=== PATIENT | female | born 1995 | race Caucasian/White ===

== ENCOUNTER 2018-03-03 22:57 | Inpatient (IN) | payer SELFPAY ==
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
[2018-03-03 23:07] VITALS: BMI 27.1
[2018-03-03] MEDS ORDERED: Sodium Chloride 0.9% 1,000 ML IV STA (23:08)
[2018-03-03] MEDS ORDERED: DEXTROSE 5% IVPB ONE ×2 (23:09→23:52)
[2018-03-03] MEDS ORDERED: WATER IVPB ONE ×2 (23:09→23:52)
[2018-03-03] MEDS ORDERED: ACETYLCYSTEINE IVPB ONE ×2 (23:09→23:52)
[2018-03-03 23:33] LABS: BASO # 0.07 K/mm3 (0.0-2.0); BASO % 0.4 % (0.0-3.0); EOS # 0.4 (0.0-0.7); EOS % 2.2 % (1.5-5.0); GRAN # 7.75 (1.4-6.5); GRAN % 45.1 % (50.0-68.0); HEMOGLOBIN 13.1 g/dL (12.0-16.0); LYMPH # 8.1 (1.2-3.4); LYMPH % 47.3 % (22.0-35.0); MEAN CELL VOLUME 82.1 fl (80.0-105.0); MEAN CORPUSCULAR HEMOGLOBIN 26.7 pg (25.0-35.0); MEAN CORPUSCULAR HGB CONC 32.5 g/dl (31.0-37.0); MEAN PLATELET VOLUME 9.6 fl (7.0-11.0); MONO # 0.9 (0.1-0.6); RBC 4.91 10^6/uL (3.5-6.1); RED CELL DISTRIBUTION WIDTH 15.1 % (11.5-14.5); WHITE BLOOD COUNT 17.1 10^3/uL (4.5-11.0)
[2018-03-03 23:38] LABS: BLOOD UREA NITROGEN 10 mg/dL (7-21); CALCIUM 9.6 mg/dL (8.4-10.5); GFR NON-AFRICAN AMERICAN > 60
[2018-03-03 23:45] LABS: ALB/GLOB RATIO 1.3 (1.1-1.8); ALBUMIN 4.7 g/dL (3.0-4.8); ALT/SGPT 48 U/L (7-56); AST/SGOT 44 U/L (14-36)
[2018-03-03 23:45] LABS: ARTERIAL BLOOD GAS HCO3 19.7 mmol/L (21-28); ARTERIAL BLOOD GAS O2 SAT 96.1 % (95-98); ARTERIAL BLOOD GAS PCO2 34 mm/Hg (35-45); ARTERIAL BLOOD GAS PH 7.37 (7.35-7.45); ARTERIAL BLOOD GAS TCO2 20.7 mmol.L (22-28)
[2018-03-04] MEDS ORDERED: Sodium Chloride 0.9% 1,000 ML IV SCH ×3 (00:30→01:41)
[2018-03-04 00:31] LABS: PH,URINE 6.5 (4.7-8.0); URINE BILIRUBIN NEGATIVE (NEGATIVE); URINE BLOOD NEGATIVE (NEGATIVE); URINE GLUCOSE (UA) NEGATIVE (NEGATIVE); URINE LEUKOCYTE ESTERASE SMALL Leu/uL (NEGATIVE); URINE PROTEIN NEGATIVE mg/dL (<30 mg/dL); URINE UROBILINOGEN 0.2 E.U./dL (<1 E.U./dL)
[2018-03-04 00:32] LABS: URINE APPEARANCE CLEAR (CLEAR); URINE COLOR YELLOW (YELLOW)
[2018-03-04 00:44] LABS: URINE BACTERIA FEW /hpf; URINE RBC 0 - 2 /hpf (0-2)
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
[2018-03-04 01:19] LABS: BARBITURATES, UR NEGATIVE (NEGATIVE); BENZODIAZEPINES, UR NEGATIVE (NEGATIVE); OPIATES, UR NEGATIVE (NEGATIVE); PHENCYCLIDINE, UR NEGATIVE (NEGATIVE)
[2018-03-04] MEDS: Sodium Chloride 0.9% 1,000 ML IV SCH ×3 (02:40→21:59)
[2018-03-04] MEDS ORDERED: ACETYLCYSTEINE IVPB ONE (04:00)
[2018-03-04] MEDS ORDERED: DEXTROSE 5% IVPB ONE (04:00)
[2018-03-04] MEDS ORDERED: WATER IVPB ONE (04:00)
[2018-03-04 04:24] LABS: INR 0.98; PARTIAL THROMBOPLASTIN TIME 28.1 Seconds (25.1-36.5); PROTHROMBIN TIME 11.3 SECONDS (9.4-12.5)
[2018-03-04 04:38] LABS: ALB/GLOB RATIO 1.3 (1.1-1.8); ALBUMIN 4.1 g/dL (3.0-4.8); ALT/SGPT 44 U/L (7-56); AST/SGOT 26 U/L (14-36); BLOOD UREA NITROGEN 7 mg/dL (7-21); CALCIUM 8.3 mg/dL (8.4-10.5); GFR NON-AFRICAN AMERICAN > 60; VENOUS BLOOD GAS BASE EXCESS -5.6 mmol/L (0.0-2.0); VENOUS BLOOD GAS PO2 50 mm/Hg (30-55); VENOUS BLOOD PH 7.35 (7.32-7.43)
[2018-03-04] MEDS ORDERED: Potassium Chloride 20 mEq ER Tab PO ONE ×2 (07:41→21:51)
--- NOTE | 2018-03-04 07:44 | CP.CCUPN ---
<HarshadJosé Miguel - Last Filed: 03/04/18 13:43> CCU Subjective - Physician Review Subjective (Free Text): 03/04/18 09:31 Freddy Patricia PGY2 - ICU Progress Note Patient seen and examined this AM. Patient is alert and oriented, cooperative with exam. She indicates she ingested at last 1/2 to 2/3 of Acetaminophen extra strength from a Tylenol bottle originally containing 225 tabs. She indicates her ingestion time was around 9-10pm last evening. She denies nausea, vomiting, abdominal pain, confusion, hallucinations, sweating, chills, shakes. CCU Objective - Vital Signs / Intake & Output Vital Signs (Last 4 hours): Vital Signs Temp Pulse Pulse Resp 03/04/18 04:20 80 03/04/18 03:51 97.9 F 84 18 Intake and Output (Last 8hrs): Intake & Output 03/03/18 03/04/18 03/04/18 22:59 06:59 14:59 Intake Total 1000 Output Total 500 Balance 500 Weight 163 lb Intake: IV 1000 Left Antecubital 1000 Output: Urine 500 Urine, Voided 500 Other: Voiding Method Bedpan # Bowel Movements 1 - Physical Exam Head: Positive for: Atraumatic, Normocephalic Pupils: Positive for: PERRL Extroacular Muscles: Positive for: EOMI Conjunctiva: Positive for: Normal Mouth: Positive for: Moist Mucous Membranes Neck: Positive for: Normal Range of Motion Respiratory/Chest: Positive for: Clear to Auscultation, Good Air Exchange. N egative for: Respiratory Distress, Accessory Muscle Use Cardiovascular: Positive for: Regular Rate and Rhythm, Normal S1, S2. Negative for: Murmurs Abdomen: Negative for: Tenderness, Distention, Peritoneal Signs Back: Positive for: Normal Inspection Upper Extremity: Positive for: Normal Inspection. Negative for: Cyanosis, Edema Lower Extremity: Positive for: Normal Inspection. Negative for: Edema Neurological: Positive for: GCS=15, CN II-XII Intact, Speech Normal, Motor Func Grossly Intact, Memory Normal Skin: Positive for: Warm, Dry, Normal Color. Negative for: Rashes Psychiatric: Positive for: Alert, Oriented x 3, Normal Insight, Normal Concentration - Medications Active Medications: Active Medications Generic Name Dose Route Start Last Admin Trade Name Freq PRN Reason Stop Dose Admin Acetylcysteine 7,420 mg/ 1,037.1 mls @ 62.5 mls/hr 03/04/18 04:00 03/04/18 05:05 Dextrose IVPB 03/04/18 20:35 62.5 mls/hr ONCE ONE Administration Sodium Chloride 1,000 mls @ 125 mls/hr 03/04/18 02:07 03/04/18 02:40 Sodium Chloride 0.9% IV 125 mls/hr .Q8H MAE Administration Ondansetron HCl 4 mg 03/04/18 02:05 Zofran Inj IVP Q6H PRN Nausea/Vomiting Pantoprazole Sodium 40 mg 03/04/18 02:07 03/04/18 03:56 Protonix Inj IVP 40 mg DAILY MAE Administration Potassium Chloride 20 meq 03/04/18 07:41 K-Dur 20 Meq Er Tab PO 03/04/18 07:42 ONCE ONE - Patient Studies Lab Studies: Lab Studies 03/04/18 03/04/18 03/04/18 Range/Units 04:08 04:08 04:08 WBC (4.5-11.0) 10^3/uL RBC (3.5-6.1) 10^6/uL Hgb (12.0-16.0) g/dL Hct (36.0-48.0) % MCV (80.0-105.0) fl MCH (25.0-35.0) pg MCHC (31.0-37.0) g/dl RDW (11.5-14.5) % Plt Count (120.0-450.0) 10^3/uL MPV (7.0-11.0) fl Gran % (50.0-68.0) % Lymph % (Auto) (22.0-35.0) % [place] % (Auto) (1.0-6.0) % Eos % (Auto) (1.5-5.0) % Baso % (Auto) (0.0-3.0) % Gran # (1.4-6.5) Lymph # (Auto) (1.2-3.4) [place] # (Auto) (0.1-0.6) Eos # (Auto) (0.0-0.7) Baso # (Auto) (0.0-2.0) K/mm3 PT 11.3 (9.4-12.5) SECONDS INR 0.98 APTT 28.1 (25.1-36.5) Seconds pCO2 (35-45) mm/Hg pO2 50 (80-100) mm/Hg HCO3 (21-28) mmol/L ABG pH (7.35-7.45) ABG Total CO2 (22-28) mmol.L ABG O2 Saturation (95-98) % ABG Base Excess (-2.0-3.0) mmol/L ABG Potassium (3.6-5.2) mmol/L VBG pH 7.35 (7.32-7.43) VBG pCO2 35.0 L (40-60) VBG HCO3 19.3 L (21-28) mmol/l VBG Total CO2 20.4 L (22-28) mmol.L VBG O2 Sat (Calc) 89.4 H (40-65) % VBG Base Excess -5.6 L (0.0-2.0) mmol/L VBG Potassium 3.4 L (3.6-5.2) mmol/L Glucose 209 H (65-105) mg/dl Lactate 2.1 (0.7-2.1) mmol/L FiO2 21.0 % Sodium 142.0 140 (132-148) mmol/L Potassium 3.5 L (3.6-5.0) mmol/L Chloride 101.0 108 H (98-107) mmol/L Carbon Dioxide 20 L (21-33) mmol/L Anion Gap 15 (10-20) BUN 7 (7-21) mg/dL Creatinine 0.5 L (0.7-1.2) mg/dl Est GFR ( Amer) > 60 Est GFR (Non-Af Amer) > 60 Random Glucose 192 H (70-110) mg/dL Calcium 8.3 L (8.4-10.5) mg/dL Magnesium (1.7-2.2) mg/dL Total Bilirubin 0.2 (0.2-1.3) mg/dL AST 26 (14-36) U/L ALT 44 (7-56) U/L Alkaline Phosphatase 27 L D (38-126) U/L Ammonia (9-33) umol/L Total Protein 7.3 (5.8-8.3) g/dL Albumin 4.1 (3.0-4.8) g/dL Globulin 3.2 gm/dL Albumin/Globulin Ratio 1.3 (1.1-1.8) Beta HCG, Quant (0-6.15) mIU/mL Arterial Blood Potassium (3.6-5.2) mmol/L Venous Blood Potassium 3.4 L (3.6-5.2) mmol/L Urine Color (YELLOW) Urine Appearance (CLEAR) Urine pH (4.7-8.0) Ur Specific [place] (1.005-1.035) Urine Protein (<30 mg/dL) mg/dL Urine Glucose (UA) (NEGATIVE) mg/dL Urine Ketones (NEGATIVE) mg/dL Urine Blood (NEGATIVE) Urine Nitrate (NEGATIVE) Urine Bilirubin (NEGATIVE) Urine Urobilinogen (<1 E.U./dL) E.U./dL Ur Leukocyte Esterase (NEGATIVE) [place]/uL Urine RBC (0-2) /hpf Urine WBC (0-6) /hpf Ur Epithelial Cells (0-5) /hpf Urine Bacteria (NONE) /hpf Salicylates (2.0-20.0) mg/dL Urine Opiates Screen (NEGATIVE) Urine Methadone Screen (NEGATIVE) Acetaminophen (10.0-20.0) ug/ml Ur Barbiturates Screen (NEGATIVE) Ur Phencyclidine Scrn (NEGATIVE) Ur Amphetamines Screen (NEGATIVE) U Benzodiazepines Scrn (NEGATIVE) U Oth Cocaine Metabols (NEGATIVE) U Cannabinoids Screen (NEGATIVE) Alcohol, Quantitative (0-10) mg/dL 03/04/18 03/04/18 03/04/18 Range/Units 01:32 01:32 00:04 WBC (4.5-11.0) 10^3/uL RBC (3.5-6.1) 10^6/uL Hgb (12.0-16.0) g/dL Hct (36.0-48.0) % MCV (80.0-105.0) fl MCH (25.0-35.0) pg MCHC (31.0-37.0) g/dl RDW (11.5-14.5) % Plt Count (120.0-450.0) 10^3/uL MPV (7.0-11.0) fl Gran % (50.0-68.0) % Lymph % (Auto) (22.0-35.0) % [place] % (Auto) (1.0-6.0) % Eos % (Auto) (1.5-5.0) % Baso % (Auto) (0.0-3.0) % Gran # (1.4-6.5) Lymph # (Auto) (1.2-3.4) [place] # (Auto) (0.1-0.6) Eos # (Auto) (0.0-0.7) Baso # (Auto) (0.0-2.0) K/mm3 PT (9.4-12.5) SECONDS INR APTT (25.1-36.5) Seconds pCO2 (35-45) mm/Hg pO2 (80-100) mm/Hg HCO3 (21-28) mmol/L ABG pH (7.35-7.45) ABG Total CO2 (22-28) mmol.L ABG O2 Saturation (95-98) % ABG Base Excess (-2.0-3.0) mmol/L ABG Potassium (3.6-5.2) mmol/L VBG pH (7.32-7.43) VBG pCO2 (40-60) VBG HCO3 (21-28) mmol/l VBG Total CO2 (22-28) mmol.L VBG O2 Sat (Calc) (40-65) % VBG Base Excess (0.0-2.0) mmol/L VBG Potassium (3.6-5.2) mmol/L Glucose (65-105) mg/dl Lactate (0.7-2.1) mmol/L FiO2 % Sodium (132-148) mmol/L Potassium (3.6-5.0) mmol/L Chloride (98-107) mmol/L Carbon Dioxide (21-33) mmol/L Anion Gap (10-20) BUN (7-21) mg/dL Creatinine (0.7-1.2) mg/dl Est GFR ( Amer) Est GFR (Non-Af Amer) Random Glucose (70-110) mg/dL Calcium (8.4-10.5) mg/dL Magnesium (1.7-2.2) mg/dL Total Bilirubin (0.2-1.3) mg/dL AST (14-36) U/L ALT (7-56) U/L Alkaline Phosphatase (38-126) U/L Ammonia < 9 L (9-33) umol/L Total Protein (5.8-8.3) g/dL Albumin (3.0-4.8) g/dL Globulin gm/dL Albumin/Globulin Ratio (1.1-1.8) Beta HCG, Quant (0-6.15) mIU/mL Arterial Blood Potassium (3.6-5.2) mmol/L Venous Blood Potassium (3.6-5.2) mmol/L Urine Color (YELLOW) Urine Appearance (CLEAR) Urine pH (4.7-8.0) Ur Specific [place] (1.005-1.035) Urine Protein (<30 mg/dL) mg/dL Urine Glucose (UA) (NEGATIVE) mg/dL Urine Ketones (NEGATIVE) mg/dL Urine Blood (NEGATIVE) Urine Nitrate (NEGATIVE) Urine Bilirubin (NEGATIVE) Urine Urobilinogen (<1 E.U./dL) E.U./dL Ur Leukocyte Esterase (NEGATIVE) [place]/uL Urine RBC (0-2) /hpf Urine WBC (0-6) /hpf Ur Epithelial Cells (0-5) /hpf Urine Bacteria (NONE) /hpf Salicylates (2.0-20.0) mg/dL Urine Opiates Screen Negative (NEGATIVE) Urine Methadone Screen Negative (NEGATIVE) Acetaminophen 178.0 H* (10.0-20.0) ug/ml Ur Barbiturates Screen Negative (NEGATIVE) Ur Phencyclidine Scrn Negative (NEGATIVE) Ur Amphetamines Screen Negative (NEGATIVE) U Benzodiazepines Scrn Negative (NEGATIVE) U Oth Cocaine Metabols Negative (NEGATIVE) U Cannabinoids Screen Positive H (NEGATIVE) Alcohol, Quantitative (0-10) mg/dL 03/04/18 03/03/18 03/03/18 Range/Units 00:04 23:38 23:05 WBC (4.5-11.0) 10^3/uL RBC (3.5-6.1) 10^6/uL Hgb (12.0-16.0) g/dL Hct (36.0-48.0) % MCV (80.0-105.0) fl MCH (25.0-35.0) pg MCHC (31.0-37.0) g/dl RDW (11.5-14.5) % Plt Count (120.0-450.0) 10^3/uL MPV (7.0-11.0) fl Gran % (50.0-68.0) % Lymph % (Auto) (22.0-35.0) % [place] % (Auto) (1.0-6.0) % Eos % (Auto) (1.5-5.0) % Baso % (Auto) (0.0-3.0) % Gran # (1.4-6.5) Lymph # (Auto) (1.2-3.4) [place] # (Auto) (0.1-0.6) Eos # (Auto) (0.0-0.7) Baso # (Auto) (0.0-2.0) K/mm3 PT (9.4-12.5) SECONDS INR APTT (25.1-36.5) Seconds pCO2 34 L (35-45) mm/Hg pO2 69.0 L (80-100) mm/Hg HCO3 19.7 L (21-28) mmol/L ABG pH 7.37 (7.35-7.45) ABG Total CO2 20.7 L (22-28) mmol.L ABG O2 Saturation 96.1 (95-98) % ABG Base Excess -4.8 L (-2.0-3.0) mmol/L ABG Potassium 3.0 L (3.6-5.2) mmol/L VBG pH (7.32-7.43) VBG pCO2 (40-60) VBG HCO3 (21-28) mmol/l VBG Total CO2 (22-28) mmol.L VBG O2 Sat (Calc) (40-65) % VBG Base Excess (0.0-2.0) mmol/L VBG Potassium (3.6-5.2) mmol/L Glucose 133 H (65-105) mg/dl Lactate 2.1 (0.7-2.1) mmol/L FiO2 21.0 % Sodium 142.0 (132-148) mmol/L Potassium (3.6-5.0) mmol/L Chloride 111.0 H (98-107) mmol/L Carbon Dioxide (21-33) mmol/L Anion Gap (10-20) BUN (7-21) mg/dL Creatinine (0.7-1.2) mg/dl Est GFR ( Amer) Est GFR (Non-Af Amer) Random Glucose (70-110) mg/dL Calcium (8.4-10.5) mg/dL Magnesium (1.7-2.2) mg/dL Total Bilirubin (0.2-1.3) mg/dL AST (14-36) U/L ALT (7-56) U/L Alkaline Phosphatase (38-126) U/L Ammonia (9-33) umol/L Total Protein (5.8-8.3) g/dL Albumin (3.0-4.8) g/dL Globulin gm/dL Albumin/Globulin Ratio (1.1-1.8) Beta HCG, Quant < 2.39 (0-6.15) mIU/mL Arterial Blood Potassium 3.0 L (3.6-5.2) mmol/L Venous Blood Potassium (3.6-5.2) mmol/L Urine Color Yellow (YELLOW) Urine Appearance Clear (CLEAR) Urine pH 6.5 (4.7-8.0) Ur Specific [place] 1.020 (1.005-1.035) Urine Protein Negative (<30 mg/dL) mg/dL Urine Glucose (UA) Negative (NEGATIVE) mg/dL Urine Ketones Negative (NEGATIVE) mg/dL Urine Blood Negative (NEGATIVE) Urine Nitrate Negative (NEGATIVE) Urine Bilirubin Negative (NEGATIVE) Urine Urobilinogen 0.2 (<1 E.U./dL) E.U./dL Ur Leukocyte Esterase Small H (NEGATIVE) [place]/uL Urine RBC 0 - 2 (0-2) /hpf Urine WBC 1 - 3 (0-6) /hpf Ur Epithelial Cells 1 - 3 (0-5) /hpf Urine Bacteria Few (NONE) /hpf Salicylates (2.0-20.0) mg/dL Urine Opiates Screen (NEGATIVE) Urine Methadone Screen (NEGATIVE) Acetaminophen (10.0-20.0) ug/ml Ur Barbiturates Screen (NEGATIVE) Ur Phencyclidine Scrn (NEGATIVE) Ur Amphetamines Screen (NEGATIVE) U Benzodiazepines Scrn (NEGATIVE) U Oth Cocaine Metabols (NEGATIVE) U Cannabinoids Screen (NEGATIVE) Alcohol, Quantitative (0-10) mg/dL 03/03/18 03/03/18 03/03/18 Range/Units 23:05 23:05 23:05 WBC (4.5-11.0) 10^3/uL RBC (3.5-6.1) 10^6/uL Hgb (12.0-16.0) g/dL Hct (36.0-48.0) % MCV (80.0-105.0) fl MCH (25.0-35.0) pg MCHC (31.0-37.0) g/dl RDW (11.5-14.5) % Plt Count (120.0-450.0) 10^3/uL MPV (7.0-11.0) fl Gran % (50.0-68.0) % Lymph % (Auto) (22.0-35.0) % [place] % (Auto) (1.0-6.0) % Eos % (Auto) (1.5-5.0) % Baso % (Auto) (0.0-3.0) % Gran # (1.4-6.5) Lymph # (Auto) (1.2-3.4) [place] # (Auto) (0.1-0.6) Eos # (Auto) (0.0-0.7) Baso # (Auto) (0.0-2.0) K/mm3 PT (9.4-12.5) SECONDS INR APTT (25.1-36.5) Seconds pCO2 (35-45) mm/Hg pO2 (80-100) mm/Hg HCO3 (21-28) mmol/L ABG pH (7.35-7.45) ABG Total CO2 (22-28) mmol.L ABG O2 Saturation (95-98) % ABG Base Excess (-2.0-3.0) mmol/L ABG Potassium (3.6-5.2) mmol/L VBG pH (7.32-7.43) VBG pCO2 (40-60) VBG HCO3 (21-28) mmol/l VBG Total CO2 (22-28) mmol.L VBG O2 Sat (Calc) (40-65) % VBG Base Excess (0.0-2.0) mmol/L VBG Potassium (3.6-5.2) mmol/L Glucose (65-105) mg/dl Lactate (0.7-2.1) mmol/L FiO2 % Sodium 143 (132-148) mmol/L Potassium 3.6 (3.6-5.0) mmol/L Chloride 106 (98-107) mmol/L Carbon Dioxide 23 (21-33) mmol/L Anion Gap 17 (10-20) BUN 10 (7-21) mg/dL Creatinine 0.8 (0.7-1.2) mg/dl Est GFR ( Amer) > 60 Est GFR (Non-Af Amer) > 60 Random Glucose 122 H (70-110) mg/dL Calcium 9.6 (8.4-10.5) mg/dL Magnesium 1.9 (1.7-2.2) mg/dL Total Bilirubin 0.4 (0.2-1.3) mg/dL AST 44 H (14-36) U/L ALT 48 (7-56) U/L Alkaline Phosphatase 66 (38-126) U/L Ammonia (9-33) umol/L Total Protein 8.4 H (5.8-8.3) g/dL Albumin 4.7 (3.0-4.8) g/dL Globulin 3.7 gm/dL Albumin/Globulin Ratio 1.3 (1.1-1.8) Beta HCG, Quant (0-6.15) mIU/mL Arterial Blood Potassium (3.6-5.2) mmol/L Venous Blood Potassium (3.6-5.2) mmol/L Urine Color (YELLOW) Urine Appearance (CLEAR) Urine pH (4.7-8.0) Ur Specific [place] (1.005-1.035) Urine Protein (<30 mg/dL) mg/dL Urine Glucose (UA) (NEGATIVE) mg/dL Urine Ketones (NEGATIVE) mg/dL Urine Blood (NEGATIVE) Urine Nitrate (NEGATIVE) Urine Bilirubin (NEGATIVE) Urine Urobilinogen (<1 E.U./dL) E.U./dL Ur Leukocyte Esterase (NEGATIVE) [place]/uL Urine RBC (0-2) /hpf Urine WBC (0-6) /hpf Ur Epithelial Cells (0-5) /hpf Urine Bacteria (NONE) /hpf Salicylates 1 L (2.0-20.0) mg/dL Urine Opiates Screen (NEGATIVE) Urine Methadone Screen (NEGATIVE) Acetaminophen 167.0 H* (10.0-20.0) ug/ml Ur Barbiturates Screen (NEGATIVE) Ur Phencyclidine Scrn (NEGATIVE) Ur Amphetamines Screen (NEGATIVE) U Benzodiazepines Scrn (NEGATIVE) U Oth Cocaine Metabols (NEGATIVE) U Cannabinoids Screen (NEGATIVE) Alcohol, Quantitative < 10 (0-10) mg/dL 03/03/18 Range/Units 23:05 WBC 17.1 H (4.5-11.0) 10^3/uL RBC 4.91 (3.5-6.1) 10^6/uL Hgb 13.1 (12.0-16.0) g/dL Hct 40.3 (36.0-48.0) % MCV 82.1 (80.0-105.0) fl MCH 26.7 (25.0-35.0) pg MCHC 32.5 (31.0-37.0) g/dl RDW 15.1 H (11.5-14.5) % Plt Count 404 (120.0-450.0) 10^3/uL MPV 9.6 (7.0-11.0) fl Gran % 45.1 L (50.0-68.0) % Lymph % (Auto) 47.3 H (22.0-35.0) % [place] % (Auto) 5.0 (1.0-6.0) % Eos % (Auto) 2.2 (1.5-5.0) % Baso % (Auto) 0.4 (0.0-3.0) % Gran # 7.75 H (1.4-6.5) Lymph # (Auto) 8.1 H (1.2-3.4) [place] # (Auto) 0.9 H (0.1-0.6) Eos # (Auto) 0.4 (0.0-0.7) Baso # (Auto) 0.07 (0.0-2.0) K/mm3 PT (9.4-12.5) SECONDS INR APTT (25.1-36.5) Seconds pCO2 (35-45) mm/Hg pO2 (80-100) mm/Hg HCO3 (21-28) mmol/L ABG pH (7.35-7.45) ABG Total CO2 (22-28) mmol.L ABG O2 Saturation (95-98) % ABG Base Excess (-2.0-3.0) mmol/L ABG Potassium (3.6-5.2) mmol/L VBG pH (7.32-7.43) VBG pCO2 (40-60) VBG HCO3 (21-28) mmol/l VBG Total CO2 (22-28) mmol.L VBG O2 Sat (Calc) (40-65) % VBG Base Excess (0.0-2.0) mmol/L VBG Potassium (3.6-5.2) mmol/L Glucose (65-105) mg/dl Lactate (0.7-2.1) mmol/L FiO2 % Sodium (132-148) mmol/L Potassium (3.6-5.0) mmol/L Chloride (98-107) mmol/L Carbon Dioxide (21-33) mmol/L Anion Gap (10-20) BUN (7-21) mg/dL Creatinine (0.7-1.2) mg/dl Est GFR ( Amer) Est GFR (Non-Af Amer) Random Glucose (70-110) mg/dL Calcium (8.4-10.5) mg/dL Magnesium (1.7-2.2) mg/dL Total Bilirubin (0.2-1.3) mg/dL AST (14-36) U/L ALT (7-56) U/L Alkaline Phosphatase (38-126) U/L Ammonia (9-33) umol/L Total Protein (5.8-8.3) g/dL Albumin (3.0-4.8) g/dL Globulin gm/dL Albumin/Globulin Ratio (1.1-1.8) Beta HCG, Quant (0-6.15) mIU/mL Arterial Blood Potassium (3.6-5.2) mmol/L Venous Blood Potassium (3.6-5.2) mmol/L Urine Color (YELLOW) Urine Appearance (CLEAR) Urine pH (4.7-8.0) Ur Specific [place] (1.005-1.035) Urine Protein (<30 mg/dL) mg/dL Urine Glucose (UA) (NEGATIVE) mg/dL Urine Ketones (NEGATIVE) mg/dL Urine Blood (NEGATIVE) Urine Nitrate (NEGATIVE) Urine Bilirubin (NEGATIVE) Urine Urobilinogen (<1 E.U./dL) E.U./dL Ur Leukocyte Esterase (NEGATIVE) [place]/uL Urine RBC (0-2) /hpf Urine WBC (0-6) /hpf Ur Epithelial Cells (0-5) /hpf Urine Bacteria (NONE) /hpf Salicylates (2.0-20.0) mg/dL Urine Opiates Screen (NEGATIVE) Urine Methadone Screen (NEGATIVE) Acetaminophen (10.0-20.0) ug/ml Ur Barbiturates Screen (NEGATIVE) Ur Phencyclidine Scrn (NEGATIVE) Ur Amphetamines Screen (NEGATIVE) U Benzodiazepines Scrn (NEGATIVE) U Oth Cocaine Metabols (NEGATIVE) U Cannabinoids Screen (NEGATIVE) Alcohol, Quantitative (0-10) mg/dL Laboratory Results - last 24 hr 03/03/18 03/03/18 03/03/18 23:05 23:05 23:05 WBC 17.1 H RBC 4.91 Hgb 13.1 Hct 40.3 MCV 82.1 MCH 26.7 MCHC 32.5 RDW 15.1 H Plt Count 404 MPV 9.6 Gran % 45.1 L Lymph % (Auto) 47.3 H [place] % (Auto) 5.0 Eos % (Auto) 2.2 Baso % (Auto) 0.4 Gran # 7.75 H Lymph # (Auto) 8.1 H [place] # (Auto) 0.9 H Eos # (Auto) 0.4 Baso # (Auto) 0.07 PT INR APTT pCO2 pO2 HCO3 ABG pH ABG Total CO2 ABG O2 Saturation ABG Base Excess ABG Potassium VBG pH VBG pCO2 VBG HCO3 VBG Total CO2 VBG O2 Sat (Calc) VBG Base Excess VBG Potassium Glucose Lactate FiO2 Sodium 143 Potassium 3.6 Chloride 106 Carbon Dioxide 23 Anion Gap 17 BUN 10 Creatinine 0.8 Est GFR ( Amer) > 60 Est GFR (Non-Af Amer) > 60 Random Glucose 122 H Calcium 9.6 Magnesium 1.9 Total Bilirubin 0.4 AST 44 H ALT 48 Alkaline Phosphatase 66 Ammonia Total Protein 8.4 H Albumin 4.7 Globulin 3.7 Albumin/Globulin Ratio 1.3 Beta HCG, Quant Arterial Blood Potassium Venous Blood Potassium Urine Color Urine Appearance Urine pH Ur Specific [place] Urine Protein Urine Glucose (UA) Urine Ketones Urine Blood Urine Nitrate Urine Bilirubin Urine Urobilinogen Ur Leukocyte Esterase Urine RBC Urine WBC Ur Epithelial Cells Urine Bacteria Salicylates 1 L Urine Opiates Screen Urine Methadone Screen Acetaminophen 167.0 H* Ur Barbiturates Screen Ur Phencyclidine Scrn Ur Amphetamines Screen U Benzodiazepines Scrn U Oth Cocaine Metabols U Cannabinoids Screen Alcohol, Quantitative 03/03/18 03/03/18 03/03/18 23:05 23:05 23:38 WBC RBC Hgb Hct MCV MCH MCHC RDW Plt Count MPV Gran % Lymph % (Auto) [place] % (Auto) Eos % (Auto) Baso % (Auto) Gran # Lymph # (Auto) [place] # (Auto) Eos # (Auto) Baso # (Auto) PT INR APTT pCO2 34 L pO2 69.0 L HCO3 19.7 L ABG pH 7.37 ABG Total CO2 20.7 L ABG O2 Saturation 96.1 ABG Base Excess -4.8 L ABG Potassium 3.0 L VBG pH VBG pCO2 VBG HCO3 VBG Total CO2 VBG O2 Sat (Calc) VBG Base Excess VBG Potassium Glucose 133 H Lactate 2.1 FiO2 21.0 Sodium 142.0 Potassium Chloride 111.0 H Carbon Dioxide Anion Gap BUN Creatinine Est GFR ( Amer) Est GFR (Non-Af Amer) Random Glucose Calcium Magnesium Total Bilirubin AST ALT Alkaline Phosphatase Ammonia Total Protein Albumin Globulin Albumin/Globulin Ratio Beta HCG, Quant < 2.39 Arterial Blood Potassium 3.0 L Venous Blood Potassium Urine Color Urine Appearance Urine pH Ur Specific [place] Urine Protein Urine Glucose (UA) Urine Ketones Urine Blood Urine Nitrate Urine Bilirubin Urine Urobilinogen Ur Leukocyte Esterase Urine RBC Urine WBC Ur Epithelial Cells Urine Bacteria Salicylates Urine Opiates Screen Urine Methadone Screen Acetaminophen Ur Barbiturates Screen Ur Phencyclidine Scrn Ur Amphetamines Screen U Benzodiazepines Scrn U Oth Cocaine Metabols U Cannabinoids Screen Alcohol, Quantitative < 10 03/04/18 03/04/18 03/04/18 00:04 00:04 01:32 WBC RBC Hgb Hct MCV MCH MCHC RDW Plt Count MPV Gran % Lymph % (Auto) [place] % (Auto) Eos % (Auto) Baso % (Auto) Gran # Lymph # (Auto) [place] # (Auto) Eos # (Auto) Baso # (Auto) PT INR APTT pCO2 pO2 HCO3 ABG pH ABG Total CO2 ABG O2 Saturation ABG Base Excess ABG Potassium VBG pH VBG pCO2 VBG HCO3 VBG Total CO2 VBG O2 Sat (Calc) VBG Base Excess VBG Potassium Glucose Lactate FiO2 Sodium Potassium Chloride Carbon Dioxide Anion Gap BUN Creatinine Est GFR ( Amer) Est GFR (Non-Af Amer) Random Glucose Calcium Magnesium Total Bilirubin AST ALT Alkaline Phosphatase Ammonia < 9 L Total Protein Albumin Globulin Albumin/Globulin Ratio Beta HCG, Quant Arterial Blood Potassium Venous Blood Potassium Urine Color Yellow Urine Appearance Clear Urine pH 6.5 Ur Specific [place] 1.020 Urine Protein Negative Urine Glucose (UA) Negative Urine Ketones Negative Urine Blood Negative Urine Nitrate Negative Urine Bilirubin Negative Urine Urobilinogen 0.2 Ur Leukocyte Esterase Small H Urine RBC 0 - 2 Urine WBC 1 - 3 Ur Epithelial Cells 1 - 3 Urine Bacteria Few Salicylates Urine Opiates Screen Negative Urine Methadone Screen Negative Acetaminophen Ur Barbiturates Screen Negative Ur Phencyclidine Scrn Negative Ur Amphetamines Screen Negative U Benzodiazepines Scrn Negative U Oth Cocaine Metabols Negative U Cannabinoids Screen Positive H Alcohol, Quantitative 03/04/18 03/04/18 03/04/18 01:32 04:08 04:08 WBC RBC Hgb Hct MCV MCH MCHC RDW Plt Count MPV Gran % Lymph % (Auto) [place] % (Auto) Eos % (Auto) Baso % (Auto) Gran # Lymph # (Auto) [place] # (Auto) Eos # (Auto) Baso # (Auto) PT 11.3 INR 0.98 APTT 28.1 pCO2 pO2 HCO3 ABG pH ABG Total CO2 ABG O2 Saturation ABG Base Excess ABG Potassium VBG pH VBG pCO2 VBG HCO3 VBG Total CO2 VBG O2 Sat (Calc) VBG Base Excess VBG Potassium Glucose Lactate FiO2 Sodium 140 Potassium 3.5 L Chloride 108 H Carbon Dioxide 20 L Anion Gap 15 BUN 7 Creatinine 0.5 L Est GFR ( Amer) > 60 Est GFR (Non-Af Amer) > 60 Random Glucose 192 H Calcium 8.3 L Magnesium Total Bilirubin 0.2 AST 26 ALT 44 Alkaline Phosphatase 27 L D Ammonia Total Protein 7.3 Albumin 4.1 Globulin 3.2 Albumin/Globulin Ratio 1.3 Beta HCG, Quant Arterial Blood Potassium Venous Blood Potassium Urine Color Urine Appearance Urine pH Ur Specific [place] Urine Protein Urine Glucose (UA) Urine Ketones Urine Blood Urine Nitrate Urine Bilirubin Urine Urobilinogen Ur Leukocyte Esterase Urine RBC Urine WBC Ur Epithelial Cells Urine Bacteria Salicylates Urine Opiates Screen Urine Methadone Screen Acetaminophen 178.0 H* Ur Barbiturates Screen Ur Phencyclidine Scrn Ur Amphetamines Screen U Benzodiazepines Scrn U Oth Cocaine Metabols U Cannabinoids Screen Alcohol, Quantitative 03/04/18 04:08 WBC RBC Hgb Hct MCV MCH MCHC RDW Plt Count MPV Gran % Lymph % (Auto) [place] % (Auto) Eos % (Auto) Baso % (Auto) Gran # Lymph # (Auto) [place] # (Auto) Eos # (Auto) Baso # (Auto) PT INR APTT pCO2 pO2 50 HCO3 ABG pH ABG Total CO2 ABG O2 Saturation ABG Base Excess ABG Potassium VBG pH 7.35 VBG pCO2 35.0 L VBG HCO3 19.3 L VBG Total CO2 20.4 L VBG O2 Sat (Calc) 89.4 H VBG Base Excess -5.6 L VBG Potassium 3.4 L Glucose 209 H Lactate 2.1 FiO2 21.0 Sodium 142.0 Potassium Chloride 101.0 Carbon Dioxide Anion Gap BUN Creatinine Est GFR ( Amer) Est GFR (Non-Af Amer) Random Glucose Calcium Magnesium Total Bilirubin AST ALT Alkaline Phosphatase Ammonia Total Protein Albumin Globulin Albumin/Globulin Ratio Beta HCG, Quant Arterial Blood Potassium Venous Blood Potassium 3.4 L Urine Color Urine Appearance Urine pH Ur Specific [place] Urine Protein Urine Glucose (UA) Urine Ketones Urine Blood Urine Nitrate Urine Bilirubin Urine Urobilinogen Ur Leukocyte Esterase Urine RBC Urine WBC Ur Epithelial Cells Urine Bacteria Salicylates Urine Opiates Screen Urine Methadone Screen Acetaminophen Ur Barbiturates Screen Ur Phencyclidine Scrn Ur Amphetamines Screen U Benzodiazepines Scrn U Oth Cocaine Metabols U Cannabinoids Screen Alcohol, Quantitative EKG/Cardiology Studies: Cardiology / EKG Studies 03/03/18 23:08 ELECTROCARDIOGRAM Stat Comment: Reason For Exam: overdose Review of Systems - Review of Systems All systems: reviewed and no additional remarkable complaints except (as mentioned in HPI) Assessment/Plan - Assessment and Plan (Free Text) Assessment: 22 year old female with no significant past medical history who presented to [facility] for melatonin ingestion and acetaminophen overdose 2/2 suicidal ideation. Patient was transferred to ICU for closer monitoring. Plan: Neuro: AAOx3 Monitor mentation Cardio: HDS, Normotensive Maintain MAP>65 Pulm: CTAB, maintain SaO2>92% Supportive O2 as needed GI: Acetaminophen overdose (Phase 1) -Hx indicates 100+ extra strength Tylenol pills ingested 9-10pm night of 03/03 -NAC protocol initiate - Loaded dose of 140mg/Kg given at - Initiation of 70 mg/kg [id number] started -Acetaminophen level Q4H, trending downwards -LFT wnl -INR 1.08 (wnl) -Ammonia wnl -Poison control contacted regarding acetaminophen and melatonin ingestion. Recommending continued supportive care and NAC protocol -IV protonix -Zofran 4mg [id number] -Aspiration precautions, NPO -GI consulted, no RUQ Renal: -Maintain euvolema, replete lytes as necessary -Slightly below K of 3.5mg, [id number] given Endo: UDS positive for THC ID: Leukocytoss of 17.1 -etiology possible reactionary vs. infectious vs. ingestion -UA showing small leuk est, negative nitrate, asymptomatic Psych: Suicidal ideation/attempt Depression -Patient denies thoughts of SI, [place] at time of interview -Psych consulted Dispo: Continue to monitor in ICU for the next 24 hours Patient case and plan discussed with attending <Ollie Nation - Last Filed: 03/04/18 14:45> CCU Objective - Vital Signs / Intake & Output Intake and Output (Last 8hrs): Intake & Output 03/03/18 03/04/18 03/04/18 22:59 06:59 14:59 Intake Total 1000 Output Total 500 Balance 500 Weight 73.936 kg Intake: IV 1000 Left Antecubital 1000 Output: Urine 500 Urine, Voided 500 Other: Voiding Method Bedpan # Bowel Movements 1 - Medications Active Medications: Active Medications Generic Name Dose Route Start Last Admin Trade Name Freq PRN Reason Stop Dose Admin Acetylcysteine 7,420 mg/ 1,037.1 mls @ 62.5 mls/hr 03/04/18 04:00 03/04/18 05:05 Dextrose IVPB 03/04/18 20:35 62.5 mls/hr ONCE ONE Administration Sodium Chloride 1,000 mls @ 125 mls/hr 03/04/18 02:07 03/04/18 08:41 Sodium Chloride 0.9% IV 125 mls/hr .Q8H MAE Administration Ondansetron HCl 4 mg 03/04/18 02:05 Zofran Inj IVP Q6H PRN Nausea/Vomiting Pantoprazole Sodium 40 mg 03/04/18 02:07 03/04/18 03:56 Protonix Inj IVP 40 mg DAILY MAE Administration - Patient Studies Lab Studies: Lab Studies 03/04/18 03/04/18 03/04/18 Range/Units 12:00 12:00 12:00 WBC (4.5-11.0) 10^3/uL RBC (3.5-6.1) 10^6/uL Hgb (12.0-16.0) g/dL Hct (36.0-48.0) % MCV (80.0-105.0) fl MCH (25.0-35.0) pg MCHC (31.0-37.0) g/dl RDW (11.5-14.5) % Plt Count (120.0-450.0) 10^3/uL MPV (7.0-11.0) fl Gran % (50.0-68.0) % Lymph % (Auto) (22.0-35.0) % [place] % (Auto) (1.0-6.0) % Eos % (Auto) (1.5-5.0) % Baso % (Auto) (0.0-3.0) % Gran # (1.4-6.5) Lymph # (Auto) (1.2-3.4) [place] # (Auto) (0.1-0.6) Eos # (Auto) (0.0-0.7) Baso # (Auto) (0.0-2.0) K/mm3 PT 12.9 H (9.4-12.5) SECONDS INR 1.12 APTT 29.0 (25.1-36.5) Seconds pCO2 (35-45) mm/Hg pO2 (80-100) mm/Hg HCO3 (21-28) mmol/L ABG pH (7.35-7.45) ABG Total CO2 (22-28) mmol.L ABG O2 Saturation (95-98) % ABG Base Excess (-2.0-3.0) mmol/L ABG Potassium (3.6-5.2) mmol/L VBG pH (7.32-7.43) VBG pCO2 (40-60) VBG HCO3 (21-28) mmol/l VBG Total CO2 (22-28) mmol.L VBG O2 Sat (Calc) (40-65) % VBG Base Excess (0.0-2.0) mmol/L VBG Potassium (3.6-5.2) mmol/L Glucose (65-105) mg/dl Lactate (0.7-2.1) mmol/L FiO2 % Sodium 139 (132-148) mmol/L Potassium 3.5 L (3.6-5.0) mmol/L Chloride 110 H (98-107) mmol/L Carbon Dioxide 22 (21-33) mmol/L Anion Gap 11 (10-20) BUN 4 L (7-21) mg/dL Creatinine 0.6 L (0.7-1.2) mg/dl Est GFR ( Amer) > 60 Est GFR (Non-Af Amer) > 60 Random Glucose 115 H (70-110) mg/dL Calcium 8.5 (8.4-10.5) mg/dL Phosphorus (2.5-4.5) mg/dL Magnesium (1.7-2.2) mg/dL Total Bilirubin 0.4 (0.2-1.3) mg/dL AST 22 (14-36) U/L ALT 40 (7-56) U/L Alkaline Phosphatase 43 (38-126) U/L Ammonia (9-33) umol/L Total Protein 6.9 (5.8-8.3) g/dL Albumin 3.7 (3.0-4.8) g/dL Globulin 3.1 gm/dL Albumin/Globulin Ratio 1.2 (1.1-1.8) Beta HCG, Quant (0-6.15) mIU/mL Arterial Blood Potassium (3.6-5.2) mmol/L Venous Blood Potassium (3.6-5.2) mmol/L Urine Color (YELLOW) Urine Appearance (CLEAR) Urine pH (4.7-8.0) Ur Specific [place] (1.005-1.035) Urine Protein (<30 mg/dL) mg/dL Urine Glucose (UA) (NEGATIVE) mg/dL Urine Ketones (NEGATIVE) mg/dL Urine Blood (NEGATIVE) Urine Nitrate (NEGATIVE) Urine Bilirubin (NEGATIVE) Urine Urobilinogen (<1 E.U./dL) E.U./dL Ur Leukocyte Esterase (NEGATIVE) [place]/uL Urine RBC (0-2) /hpf Urine WBC (0-6) /hpf Ur Epithelial Cells (0-5) /hpf Urine Bacteria (NONE) /hpf Salicylates (2.0-20.0) mg/dL Urine Opiates Screen (NEGATIVE) Urine Methadone Screen (NEGATIVE) Acetaminophen < 10.0 L (10.0-20.0) ug/ml Ur Barbiturates Screen (NEGATIVE) Ur Phencyclidine Scrn (NEGATIVE) Ur Amphetamines Screen (NEGATIVE) U Benzodiazepines Scrn (NEGATIVE) U Oth Cocaine Metabols (NEGATIVE) U Cannabinoids Screen (NEGATIVE) Alcohol, Quantitative (0-10) mg/dL 03/04/18 03/04/18 03/04/18 Range/Units 11:40 10:49 08:00 WBC 13.1 H D (4.5-11.0) 10^3/uL RBC 4.53 (3.5-6.1) 10^6/uL Hgb 11.6 L (12.0-16.0) g/dL Hct 37.3 (36.0-48.0) % MCV 82.3 (80.0-105.0) fl MCH 25.6 (25.0-35.0) pg MCHC 31.1 (31.0-37.0) g/dl RDW 15.2 H (11.5-14.5) % Plt Count 315 (120.0-450.0) 10^3/uL MPV 9.7 (7.0-11.0) fl Gran % 76.9 H (50.0-68.0) % Lymph % (Auto) 19.5 L (22.0-35.0) % [place] % (Auto) 3.1 (1.0-6.0) % Eos % (Auto) 0.2 L (1.5-5.0) % Baso % (Auto) 0.3 (0.0-3.0) % Gran # 10.04 H (1.4-6.5) Lymph # (Auto) 2.6 (1.2-3.4) [place] # (Auto) 0.4 (0.1-0.6) Eos # (Auto) 0.0 (0.0-0.7) Baso # (Auto) 0.04 (0.0-2.0) K/mm3 PT 12.4 (9.4-12.5) SECONDS INR 1.08 APTT (25.1-36.5) Seconds pCO2 (35-45) mm/Hg pO2 57 H (80-100) mm/Hg HCO3 (21-28) mmol/L ABG pH (7.35-7.45) ABG Total CO2 (22-28) mmol.L ABG O2 Saturation (95-98) % ABG Base Excess (-2.0-3.0) mmol/L ABG Potassium (3.6-5.2) mmol/L VBG pH 7.38 (7.32-7.43) VBG pCO2 38.0 L (40-60) VBG HCO3 22.5 (21-28) mmol/l VBG Total CO2 23.7 (22-28) mmol.L VBG O2 Sat (Calc) 92.3 H (40-65) % VBG Base Excess -2.3 L (0.0-2.0) mmol/L VBG Potassium 3.3 L (3.6-5.2) mmol/L Glucose 116 H (65-105) mg/dl Lactate 1.0 (0.7-2.1) mmol/L FiO2 21.0 % Sodium 139.0 (132-148) mmol/L Potassium (3.6-5.0) mmol/L Chloride 108.0 H (98-107) mmol/L Carbon Dioxide (21-33) mmol/L Anion Gap (10-20) BUN (7-21) mg/dL Creatinine (0.7-1.2) mg/dl Est GFR ( Amer) Est GFR (Non-Af Amer) Random Glucose (70-110) mg/dL Calcium (8.4-10.5) mg/dL Phosphorus (2.5-4.5) mg/dL Magnesium (1.7-2.2) mg/dL Total Bilirubin (0.2-1.3) mg/dL AST (14-36) U/L ALT (7-56) U/L Alkaline Phosphatase (38-126) U/L Ammonia (9-33) umol/L Total Protein (5.8-8.3) g/dL Albumin (3.0-4.8) g/dL Globulin gm/dL Albumin/Globulin Ratio (1.1-1.8) Beta HCG, Quant (0-6.15) mIU/mL Arterial Blood Potassium (3.6-5.2) mmol/L Venous Blood Potassium 3.3 L (3.6-5.2) mmol/L Urine Color (YELLOW) Urine Appearance (CLEAR) Urine pH (4.7-8.0) Ur Specific [place] (1.005-1.035) Urine Protein (<30 mg/dL) mg/dL Urine Glucose (UA) (NEGATIVE) mg/dL Urine Ketones (NEGATIVE) mg/dL Urine Blood (NEGATIVE) Urine Nitrate (NEGATIVE) Urine Bilirubin (NEGATIVE) Urine Urobilinogen (<1 E.U./dL) E.U./dL Ur Leukocyte Esterase (NEGATIVE) [place]/uL Urine RBC (0-2) /hpf Urine WBC (0-6) /hpf Ur Epithelial Cells (0-5) /hpf Urine Bacteria (NONE) /hpf Salicylates (2.0-20.0) mg/dL Urine Opiates Screen (NEGATIVE) Urine Methadone Screen (NEGATIVE) Acetaminophen (10.0-20.0) ug/ml Ur Barbiturates Screen (NEGATIVE) Ur Phencyclidine Scrn (NEGATIVE) Ur Amphetamines Screen (NEGATIVE) U Benzodiazepines Scrn (NEGATIVE) U Oth Cocaine Metabols (NEGATIVE) U Cannabinoids Screen (NEGATIVE) Alcohol, Quantitative (0-10) mg/dL 03/04/18 03/04/18 03/04/18 Range/Units 08:00 08:00 08:00 WBC (4.5-11.0) 10^3/uL RBC (3.5-6.1) 10^6/uL Hgb (12.0-16.0) g/dL Hct (36.0-48.0) % MCV (80.0-105.0) fl MCH (25.0-35.0) pg MCHC (31.0-37.0) g/dl RDW (11.5-14.5) % Plt Count (120.0-450.0) 10^3/uL MPV (7.0-11.0) fl Gran % (50.0-68.0) % Lymph % (Auto) (22.0-35.0) % [place] % (Auto) (1.0-6.0) % Eos % (Auto) (1.5-5.0) % Baso % (Auto) (0.0-3.0) % Gran # (1.4-6.5) Lymph # (Auto) (1.2-3.4) [place] # (Auto) (0.1-0.6) Eos # (Auto) (0.0-0.7) Baso # (Auto) (0.0-2.0) K/mm3 PT (9.4-12.5) SECONDS INR APTT 29.3 (25.1-36.5) Seconds pCO2 (35-45) mm/Hg pO2 (80-100) mm/Hg HCO3 (21-28) mmol/L ABG pH (7.35-7.45) ABG Total CO2 (22-28) mmol.L ABG O2 Saturation (95-98) % ABG Base Excess (-2.0-3.0) mmol/L ABG Potassium (3.6-5.2) mmol/L VBG pH (7.32-7.43) VBG pCO2 (40-60) VBG HCO3 (21-28) mmol/l VBG Total CO2 (22-28) mmol.L VBG O2 Sat (Calc) (40-65) % VBG Base Excess (0.0-2.0) mmol/L VBG Potassium (3.6-5.2) mmol/L Glucose (65-105) mg/dl Lactate (0.7-2.1) mmol/L FiO2 % Sodium 139 (132-148) mmol/L Potassium 3.5 L (3.6-5.0) mmol/L Chloride 108 H (98-107) mmol/L Carbon Dioxide 21 (21-33) mmol/L Anion Gap 14 (10-20) BUN 6 L (7-21) mg/dL Creatinine 0.5 L (0.7-1.2) mg/dl Est GFR ( Amer) > 60 Est GFR (Non-Af Amer) > 60 Random Glucose 137 H (70-110) mg/dL Calcium 8.4 (8.4-10.5) mg/dL Phosphorus 3.4 (2.5-4.5) mg/dL Magnesium 1.7 (1.7-2.2) mg/dL Total Bilirubin 0.3 (0.2-1.3) mg/dL AST 25 (14-36) U/L ALT 42 (7-56) U/L Alkaline Phosphatase 38 D (38-126) U/L Ammonia (9-33) umol/L Total Protein 7.0 (5.8-8.3) g/dL Albumin 4.0 (3.0-4.8) g/dL Globulin 3.0 gm/dL Albumin/Globulin Ratio 1.3 (1.1-1.8) Beta HCG, Quant (0-6.15) mIU/mL Arterial Blood Potassium (3.6-5.2) mmol/L Venous Blood Potassium (3.6-5.2) mmol/L Urine Color (YELLOW) Urine Appearance (CLEAR) Urine pH (4.7-8.0) Ur Specific [place] (1.005-1.035) Urine Protein (<30 mg/dL) mg/dL Urine Glucose (UA) (NEGATIVE) mg/dL Urine Ketones (NEGATIVE) mg/dL Urine Blood (NEGATIVE) Urine Nitrate (NEGATIVE) Urine Bilirubin (NEGATIVE) Urine Urobilinogen (<1 E.U./dL) E.U./dL Ur Leukocyte Esterase (NEGATIVE) [place]/uL Urine RBC (0-2) /hpf Urine WBC (0-6) /hpf Ur Epithelial Cells (0-5) /hpf Urine Bacteria (NONE) /hpf Salicylates (2.0-20.0) mg/dL Urine Opiates Screen (NEGATIVE) Urine Methadone Screen (NEGATIVE) Acetaminophen 25.0 H (10.0-20.0) ug/ml Ur Barbiturates Screen (NEGATIVE) Ur Phencyclidine Scrn (NEGATIVE) Ur Amphetamines Screen (NEGATIVE) U Benzodiazepines Scrn (NEGATIVE) U Oth Cocaine Metabols (NEGATIVE) U Cannabinoids Screen (NEGATIVE) Alcohol, Quantitative (0-10) mg/dL 03/04/18 03/04/18 03/04/18 Range/Units 04:08 04:08 04:08 WBC (4.5-11.0) 10^3/uL RBC (3.5-6.1) 10^6/uL Hgb (12.0-16.0) g/dL Hct (36.0-48.0) % MCV (80.0-105.0) fl MCH (25.0-35.0) pg MCHC (31.0-37.0) g/dl RDW (11.5-14.5) % Plt Count (120.0-450.0) 10^3/uL MPV (7.0-11.0) fl Gran % (50.0-68.0) % Lymph % (Auto) (22.0-35.0) % [place] % (Auto) (1.0-6.0) % Eos % (Auto) (1.5-5.0) % Baso % (Auto) (0.0-3.0) % Gran # (1.4-6.5) Lymph # (Auto) (1.2-3.4) [place] # (Auto) (0.1-0.6) Eos # (Auto) (0.0-0.7) Baso # (Auto) (0.0-2.0) K/mm3 PT 11.3 (9.4-12.5) SECONDS INR 0.98 APTT 28.1 (25.1-36.5) Seconds pCO2 (35-45) mm/Hg pO2 50 (80-100) mm/Hg HCO3 (21-28) mmol/L ABG pH (7.35-7.45) ABG Total CO2 (22-28) mmol.L ABG O2 Saturation (95-98) % ABG Base Excess (-2.0-3.0) mmol/L ABG Potassium (3.6-5.2) mmol/L VBG pH 7.35 (7.32-7.43) VBG pCO2 35.0 L (40-60) VBG HCO3 19.3 L (21-28) mmol/l VBG Total CO2 20.4 L (22-28) mmol.L VBG O2 Sat (Calc) 89.4 H (40-65) % VBG Base Excess -5.6 L (0.0-2.0) mmol/L VBG Potassium 3.4 L (3.6-5.2) mmol/L Glucose 209 H (65-105) mg/dl Lactate 2.1 (0.7-2.1) mmol/L FiO2 21.0 % Sodium 142.0 140 (132-148) mmol/L Potassium 3.5 L (3.6-5.0) mmol/L Chloride 101.0 108 H (98-107) mmol/L Carbon Dioxide 20 L (21-33) mmol/L Anion Gap 15 (10-20) BUN 7 (7-21) mg/dL Creatinine 0.5 L (0.7-1.2) mg/dl Est GFR ( Amer) > 60 Est GFR (Non-Af Amer) > 60 Random Glucose 192 H (70-110) mg/dL Calcium 8.3 L (8.4-10.5) mg/dL Phosphorus (2.5-4.5) mg/dL Magnesium (1.7-2.2) mg/dL Total Bilirubin 0.2 (0.2-1.3) mg/dL AST 26 (14-36) U/L ALT 44 (7-56) U/L Alkaline Phosphatase 27 L D (38-126) U/L Ammonia (9-33) umol/L Total Protein 7.3 (5.8-8.3) g/dL Albumin 4.1 (3.0-4.8) g/dL Globulin 3.2 gm/dL Albumin/Globulin Ratio 1.3 (1.1-1.8) Beta HCG, Quant (0-6.15) mIU/mL Arterial Blood Potassium (3.6-5.2) mmol/L Venous Blood Potassium 3.4 L (3.6-5.2) mmol/L Urine Color (YELLOW) Urine Appearance (CLEAR) Urine pH (4.7-8.0) Ur Specific [place] (1.005-1.035) Urine Protein (<30 mg/dL) mg/dL Urine Glucose (UA) (NEGATIVE) mg/dL Urine Ketones (NEGATIVE) mg/dL Urine Blood (NEGATIVE) Urine Nitrate (NEGATIVE) Urine Bilirubin (NEGATIVE) Urine Urobilinogen (<1 E.U./dL) E.U./dL Ur Leukocyte Esterase (NEGATIVE) [place]/uL Urine RBC (0-2) /hpf Urine WBC (0-6) /hpf Ur Epithelial Cells (0-5) /hpf Urine Bacteria (NONE) /hpf Salicylates (2.0-20.0) mg/dL Urine Opiates Screen (NEGATIVE) Urine Methadone Screen (NEGATIVE) Acetaminophen (10.0-20.0) ug/ml Ur Barbiturates Screen (NEGATIVE) Ur Phencyclidine Scrn (NEGATIVE) Ur Amphetamines Screen (NEGATIVE) U Benzodiazepines Scrn (NEGATIVE) U Oth Cocaine Metabols (NEGATIVE) U Cannabinoids Screen (NEGATIVE) Alcohol, Quantitative (0-10) mg/dL 03/04/18 03/04/18 03/04/18 Range/Units 01:32 01:32 00:04 WBC (4.5-11.0) 10^3/uL RBC (3.5-6.1) 10^6/uL Hgb (12.0-16.0) g/dL Hct (36.0-48.0) % MCV (80.0-105.0) fl MCH (25.0-35.0) pg MCHC (31.0-37.0) g/dl RDW (11.5-14.5) % Plt Count (120.0-450.0) 10^3/uL MPV (7.0-11.0) fl Gran % (50.0-68.0) % Lymph % (Auto) (22.0-35.0) % [place] % (Auto) (1.0-6.0) % Eos % (Auto) (1.5-5.0) % Baso % (Auto) (0.0-3.0) % Gran # (1.4-6.5) Lymph # (Auto) (1.2-3.4) [place] # (Auto) (0.1-0.6) Eos # (Auto) (0.0-0.7) Baso # (Auto) (0.0-2.0) K/mm3 PT (9.4-12.5) SECONDS INR APTT (25.1-36.5) Seconds pCO2 (35-45) mm/Hg pO2 (80-100) mm/Hg HCO3 (21-28) mmol/L ABG pH (7.35-7.45) ABG Total CO2 (22-28) mmol.L ABG O2 Saturation (95-98) % ABG Base Excess (-2.0-3.0) mmol/L ABG Potassium (3.6-5.2) mmol/L VBG pH (7.32-7.43) VBG pCO2 (40-60) VBG HCO3 (21-28) mmol/l VBG Total CO2 (22-28) mmol.L VBG O2 Sat (Calc) (40-65) % VBG Base Excess (0.0-2.0) mmol/L VBG Potassium (3.6-5.2) mmol/L Glucose (65-105) mg/dl Lactate (0.7-2.1) mmol/L FiO2 % Sodium (132-148) mmol/L Potassium (3.6-5.0) mmol/L Chloride (98-107) mmol/L Carbon Dioxide (21-33) mmol/L Anion Gap (10-20) BUN (7-21) mg/dL Creatinine (0.7-1.2) mg/dl Est GFR ( Amer) Est GFR (Non-Af Amer) Random Glucose (70-110) mg/dL Calcium (8.4-10.5) mg/dL Phosphorus (2.5-4.5) mg/dL Magnesium (1.7-2.2) mg/dL Total Bilirubin (0.2-1.3) mg/dL AST (14-36) U/L ALT (7-56) U/L Alkaline Phosphatase (38-126) U/L Ammonia < 9 L (9-33) umol/L Total Protein (5.8-8.3) g/dL Albumin (3.0-4.8) g/dL Globulin gm/dL Albumin/Globulin Ratio (1.1-1.8) Beta HCG, Quant (0-6.15) mIU/mL Arterial Blood Potassium (3.6-5.2) mmol/L Venous Blood Potassium (3.6-5.2) mmol/L Urine Color (YELLOW) Urine Appearance (CLEAR) Urine pH (4.7-8.0) Ur Specific [place] (1.005-1.035) Urine Protein (<30 mg/dL) mg/dL Urine Glucose (UA) (NEGATIVE) mg/dL Urine Ketones (NEGATIVE) mg/dL Urine Blood (NEGATIVE) Urine Nitrate (NEGATIVE) Urine Bilirubin (NEGATIVE) Urine Urobilinogen (<1 E.U./dL) E.U./dL Ur Leukocyte Esterase (NEGATIVE) Dutch/uL Urine RBC (0-2) /hpf Urine WBC (0-6) /hpf Ur Epithelial Cells (0-5) /hpf Urine Bacteria (NONE) /hpf Salicylates (2.0-20.0) mg/dL Urine Opiates Screen Negative (NEGATIVE) Urine Methadone Screen Negative (NEGATIVE) Acetaminophen 178.0 H* (10.0-20.0) ug/ml Ur Barbiturates Screen Negative (NEGATIVE) Ur Phencyclidine Scrn Negative (NEGATIVE) Ur Amphetamines Screen Negative (NEGATIVE) U Benzodiazepines Scrn Negative (NEGATIVE) U Oth Cocaine Metabols Negative (NEGATIVE) U Cannabinoids Screen Positive H (NEGATIVE) Alcohol, Quantitative (0-10) mg/dL 03/04/18 03/03/18 03/03/18 Range/Units 00:04 23:38 23:05 WBC (4.5-11.0) 10^3/uL RBC (3.5-6.1) 10^6/uL Hgb (12.0-16.0) g/dL Hct (36.0-48.0) % MCV (80.0-105.0) fl MCH (25.0-35.0) pg MCHC (31.0-37.0) g/dl RDW (11.5-14.5) % Plt Count (120.0-450.0) 10^3/uL MPV (7.0-11.0) fl Gran % (50.0-68.0) % Lymph % (Auto) (22.0-35.0) % [place] % (Auto) (1.0-6.0) % Eos % (Auto) (1.5-5.0) % Baso % (Auto) (0.0-3.0) % Gran # (1.4-6.5) Lymph # (Auto) (1.2-3.4) [place] # (Auto) (0.1-0.6) Eos # (Auto) (0.0-0.7) Baso # (Auto) (0.0-2.0) K/mm3 PT (9.4-12.5) SECONDS INR APTT (25.1-36.5) Seconds pCO2 34 L (35-45) mm/Hg pO2 69.0 L (80-100) mm/Hg HCO3 19.7 L (21-28) mmol/L ABG pH 7.37 (7.35-7.45) ABG Total CO2 20.7 L (22-28) mmol.L ABG O2 Saturation 96.1 (95-98) % ABG Base Excess -4.8 L (-2.0-3.0) mmol/L ABG Potassium 3.0 L (3.6-5.2) mmol/L VBG pH (7.32-7.43) VBG pCO2 (40-60) VBG HCO3 (21-28) mmol/l VBG Total CO2 (22-28) mmol.L VBG O2 Sat (Calc) (40-65) % VBG Base Excess (0.0-2.0) mmol/L VBG Potassium (3.6-5.2) mmol/L Glucose 133 H (65-105) mg/dl Lactate 2.1 (0.7-2.1) mmol/L FiO2 21.0 % Sodium 142.0 (132-148) mmol/L Potassium (3.6-5.0) mmol/L Chloride 111.0 H (98-107) mmol/L Carbon Dioxide (21-33) mmol/L Anion Gap (10-20) BUN (7-21) mg/dL Creatinine (0.7-1.2) mg/dl Est GFR ( Amer) Est GFR (Non-Af Amer) Random Glucose (70-110) mg/dL Calcium (8.4-10.5) mg/dL Phosphorus (2.5-4.5) mg/dL Magnesium (1.7-2.2) mg/dL Total Bilirubin (0.2-1.3) mg/dL AST (14-36) U/L ALT (7-56) U/L Alkaline Phosphatase (38-126) U/L Ammonia (9-33) umol/L Total Protein (5.8-8.3) g/dL Albumin (3.0-4.8) g/dL Globulin gm/dL Albumin/Globulin Ratio (1.1-1.8) Beta HCG, Quant < 2.39 (0-6.15) mIU/mL Arterial Blood Potassium 3.0 L (3.6-5.2) mmol/L Venous Blood Potassium (3.6-5.2) mmol/L Urine Color Yellow (YELLOW) Urine Appearance Clear (CLEAR) Urine pH 6.5 (4.7-8.0) Ur Specific [place] 1.020 (1.005-1.035) Urine Protein Negative (<30 mg/dL) mg/dL Urine Glucose (UA) Negative (NEGATIVE) mg/dL Urine Ketones Negative (NEGATIVE) mg/dL Urine Blood Negative (NEGATIVE) Urine Nitrate Negative (NEGATIVE) Urine Bilirubin Negative (NEGATIVE) Urine Urobilinogen 0.2 (<1 E.U./dL) E.U./dL Ur Leukocyte Esterase Small H (NEGATIVE) Dutch/uL Urine RBC 0 - 2 (0-2) /hpf Urine WBC 1 - 3 (0-6) /hpf Ur Epithelial Cells 1 - 3 (0-5) /hpf Urine Bacteria Few (NONE) /hpf Salicylates (2.0-20.0) mg/dL Urine Opiates Screen (NEGATIVE) Urine Methadone Screen (NEGATIVE) Acetaminophen (10.0-20.0) ug/ml Ur Barbiturates Screen (NEGATIVE) Ur Phencyclidine Scrn (NEGATIVE) Ur Amphetamines Screen (NEGATIVE) U Benzodiazepines Scrn (NEGATIVE) U Oth Cocaine Metabols (NEGATIVE) U Cannabinoids Screen (NEGATIVE) Alcohol, Quantitative (0-10) mg/dL 03/03/18 03/03/18 03/03/18 Range/Units 23:05 23:05 23:05 WBC (4.5-11.0) 10^3/uL RBC (3.5-6.1) 10^6/uL Hgb (12.0-16.0) g/dL Hct (36.0-48.0) % MCV (80.0-105.0) fl MCH (25.0-35.0) pg MCHC (31.0-37.0) g/dl RDW (11.5-14.5) % Plt Count (120.0-450.0) 10^3/uL MPV (7.0-11.0) fl Gran % (50.0-68.0) % Lymph % (Auto) (22.0-35.0) % [place] % (Auto) (1.0-6.0) % Eos % (Auto) (1.5-5.0) % Baso % (Auto) (0.0-3.0) % Gran # (1.4-6.5) Lymph # (Auto) (1.2-3.4) [place] # (Auto) (0.1-0.6) Eos # (Auto) (0.0-0.7) Baso # (Auto) (0.0-2.0) K/mm3 PT (9.4-12.5) SECONDS INR APTT (25.1-36.5) Seconds pCO2 (35-45) mm/Hg pO2 (80-100) mm/Hg HCO3 (21-28) mmol/L ABG pH (7.35-7.45) ABG Total CO2 (22-28) mmol.L ABG O2 Saturation (95-98) % ABG Base Excess (-2.0-3.0) mmol/L ABG Potassium (3.6-5.2) mmol/L VBG pH (7.32-7.43) VBG pCO2 (40-60) VBG HCO3 (21-28) mmol/l VBG Total CO2 (22-28) mmol.L VBG O2 Sat (Calc) (40-65) % VBG Base Excess (0.0-2.0) mmol/L VBG Potassium (3.6-5.2) mmol/L Glucose (65-105) mg/dl Lactate (0.7-2.1) mmol/L FiO2 % Sodium 143 (132-148) mmol/L Potassium 3.6 (3.6-5.0) mmol/L Chloride 106 (98-107) mmol/L Carbon Dioxide 23 (21-33) mmol/L Anion Gap 17 (10-20) BUN 10 (7-21) mg/dL Creatinine 0.8 (0.7-1.2) mg/dl Est GFR ( Amer) > 60 Est GFR (Non-Af Amer) > 60 Random Glucose 122 H (70-110) mg/dL Calcium 9.6 (8.4-10.5) mg/dL Phosphorus (2.5-4.5) mg/dL Magnesium 1.9 (1.7-2.2) mg/dL Total Bilirubin 0.4 (0.2-1.3) mg/dL AST 44 H (14-36) U/L ALT 48 (7-56) U/L Alkaline Phosphatase 66 (38-126) U/L Ammonia (9-33) umol/L Total Protein 8.4 H (5.8-8.3) g/dL Albumin 4.7 (3.0-4.8) g/dL Globulin 3.7 gm/dL Albumin/Globulin Ratio 1.3 (1.1-1.8) Beta HCG, Quant (0-6.15) mIU/mL Arterial Blood Potassium (3.6-5.2) mmol/L Venous Blood Potassium (3.6-5.2) mmol/L Urine Color (YELLOW) Urine Appearance (CLEAR) Urine pH (4.7-8.0) Ur Specific [place] (1.005-1.035) Urine Protein (<30 mg/dL) mg/dL Urine Glucose (UA) (NEGATIVE) mg/dL Urine Ketones (NEGATIVE) mg/dL Urine Blood (NEGATIVE) Urine Nitrate (NEGATIVE) Urine Bilirubin (NEGATIVE) Urine Urobilinogen (<1 E.U./dL) E.U./dL Ur Leukocyte Esterase (NEGATIVE) [place]/uL Urine RBC (0-2) /hpf Urine WBC (0-6) /hpf Ur Epithelial Cells (0-5) /hpf Urine Bacteria (NONE) /hpf Salicylates 1 L (2.0-20.0) mg/dL Urine Opiates Screen (NEGATIVE) Urine Methadone Screen (NEGATIVE) Acetaminophen 167.0 H* (10.0-20.0) ug/ml Ur Barbiturates Screen (NEGATIVE) Ur Phencyclidine Scrn (NEGATIVE) Ur Amphetamines Screen (NEGATIVE) U Benzodiazepines Scrn (NEGATIVE) U Oth Cocaine Metabols (NEGATIVE) U Cannabinoids Screen (NEGATIVE) Alcohol, Quantitative < 10 (0-10) mg/dL 03/03/18 Range/Units 23:05 WBC 17.1 H (4.5-11.0) 10^3/uL RBC 4.91 (3.5-6.1) 10^6/uL Hgb 13.1 (12.0-16.0) g/dL Hct 40.3 (36.0-48.0) % MCV 82.1 (80.0-105.0) fl MCH 26.7 (25.0-35.0) pg MCHC 32.5 (31.0-37.0) g/dl RDW 15.1 H (11.5-14.5) % Plt Count 404 (120.0-450.0) 10^3/uL MPV 9.6 (7.0-11.0) fl Gran % 45.1 L (50.0-68.0) % Lymph % (Auto) 47.3 H (22.0-35.0) % [place] % (Auto) 5.0 (1.0-6.0) % Eos % (Auto) 2.2 (1.5-5.0) % Baso % (Auto) 0.4 (0.0-3.0) % Gran # 7.75 H (1.4-6.5) Lymph # (Auto) 8.1 H (1.2-3.4) [place] # (Auto) 0.9 H (0.1-0.6) Eos # (Auto) 0.4 (0.0-0.7) Baso # (Auto) 0.07 (0.0-2.0) K/mm3 PT (9.4-12.5) SECONDS INR APTT (25.1-36.5) Seconds pCO2 (35-45) mm/Hg pO2 (80-100) mm/Hg HCO3 (21-28) mmol/L ABG pH (7.35-7.45) ABG Total CO2 (22-28) mmol.L ABG O2 Saturation (95-98) % ABG Base Excess (-2.0-3.0) mmol/L ABG Potassium (3.6-5.2) mmol/L VBG pH (7.32-7.43) VBG pCO2 (40-60) VBG HCO3 (21-28) mmol/l VBG Total CO2 (22-28) mmol.L VBG O2 Sat (Calc) (40-65) % VBG Base Excess (0.0-2.0) mmol/L VBG Potassium (3.6-5.2) mmol/L Glucose (65-105) mg/dl Lactate (0.7-2.1) mmol/L FiO2 % Sodium (132-148) mmol/L Potassium (3.6-5.0) mmol/L Chloride (98-107) mmol/L Carbon Dioxide (21-33) mmol/L Anion Gap (10-20) BUN (7-21) mg/dL Creatinine (0.7-1.2) mg/dl Est GFR ( Amer) Est GFR (Non-Af Amer) Random Glucose (70-110) mg/dL Calcium (8.4-10.5) mg/dL Phosphorus (2.5-4.5) mg/dL Magnesium (1.7-2.2) mg/dL Total Bilirubin (0.2-1.3) mg/dL AST (14-36) U/L ALT (7-56) U/L Alkaline Phosphatase (38-126) U/L Ammonia (9-33) umol/L Total Protein (5.8-8.3) g/dL Albumin (3.0-4.8) g/dL Globulin gm/dL Albumin/Globulin Ratio (1.1-1.8) Beta HCG, Quant (0-6.15) mIU/mL Arterial Blood Potassium (3.6-5.2) mmol/L Venous Blood Potassium (3.6-5.2) mmol/L Urine Color (YELLOW) Urine Appearance (CLEAR) Urine pH (4.7-8.0) Ur Specific [place] (1.005-1.035) Urine Protein (<30 mg/dL) mg/dL Urine Glucose (UA) (NEGATIVE) mg/dL Urine Ketones (NEGATIVE) mg/dL Urine Blood (NEGATIVE) Urine Nitrate (NEGATIVE) Urine Bilirubin (NEGATIVE) Urine Urobilinogen (<1 E.U./dL) E.U./dL Ur Leukocyte Esterase (NEGATIVE) [place]/uL Urine RBC (0-2) /hpf Urine WBC (0-6) /hpf Ur Epithelial Cells (0-5) /hpf Urine Bacteria (NONE) /hpf Salicylates (2.0-20.0) mg/dL Urine Opiates Screen (NEGATIVE) Urine Methadone Screen (NEGATIVE) Acetaminophen (10.0-20.0) ug/ml Ur Barbiturates Screen (NEGATIVE) Ur Phencyclidine Scrn (NEGATIVE) Ur Amphetamines Screen (NEGATIVE) U Benzodiazepines Scrn (NEGATIVE) U Oth Cocaine Metabols (NEGATIVE) U Cannabinoids Screen (NEGATIVE) Alcohol, Quantitative (0-10) mg/dL Laboratory Results - last 24 hr 03/03/18 03/03/18 03/03/18 23:05 23:05 23:05 WBC 17.1 H RBC 4.91 Hgb 13.1 Hct 40.3 MCV 82.1 MCH 26.7 MCHC 32.5 RDW 15.1 H Plt Count 404 MPV 9.6 Gran % 45.1 L Lymph % (Auto) 47.3 H [place] % (Auto) 5.0 Eos % (Auto) 2.2 Baso % (Auto) 0.4 Gran # 7.75 H Lymph # (Auto) 8.1 H [place] # (Auto) 0.9 H Eos # (Auto) 0.4 Baso # (Auto) 0.07 PT INR APTT pCO2 pO2 HCO3 ABG pH ABG Total CO2 ABG O2 Saturation ABG Base Excess ABG Potassium VBG pH VBG pCO2 VBG HCO3 VBG Total CO2 VBG O2 Sat (Calc) VBG Base Excess VBG Potassium Glucose Lactate FiO2 Sodium 143 Potassium 3.6 Chloride 106 Carbon Dioxide 23 Anion Gap 17 BUN 10 Creatinine 0.8 Est GFR ( Amer) > 60 Est GFR (Non-Af Amer) > 60 Random Glucose 122 H Calcium 9.6 Phosphorus Magnesium 1.9 Total Bilirubin 0.4 AST 44 H ALT 48 Alkaline Phosphatase 66 Ammonia Total Protein 8.4 H Albumin 4.7 Globulin 3.7 Albumin/Globulin Ratio 1.3 Beta HCG, Quant Arterial Blood Potassium Venous Blood Potassium Urine Color Urine Appearance Urine pH Ur Specific [place] Urine Protein Urine Glucose (UA) Urine Ketones Urine Blood Urine Nitrate Urine Bilirubin Urine Urobilinogen Ur Leukocyte Esterase Urine RBC Urine WBC Ur Epithelial Cells Urine Bacteria Salicylates 1 L Urine Opiates Screen Urine Methadone Screen Acetaminophen 167.0 H* Ur Barbiturates Screen Ur Phencyclidine Scrn Ur Amphetamines Screen U Benzodiazepines Scrn U Oth Cocaine Metabols U Cannabinoids Screen Alcohol, Quantitative 03/03/18 03/03/18 03/03/18 23:05 23:05 23:38 WBC RBC Hgb Hct MCV MCH MCHC RDW Plt Count MPV Gran % Lymph % (Auto) [place] % (Auto) Eos % (Auto) Baso % (Auto) Gran # Lymph # (Auto) [place] # (Auto) Eos # (Auto) Baso # (Auto) PT INR APTT pCO2 34 L pO2 69.0 L HCO3 19.7 L ABG pH 7.37 ABG Total CO2 20.7 L ABG O2 Saturation 96.1 ABG Base Excess -4.8 L ABG Potassium 3.0 L VBG pH VBG pCO2 VBG HCO3 VBG Total CO2 VBG O2 Sat (Calc) VBG Base Excess VBG Potassium Glucose 133 H Lactate 2.1 FiO2 21.0 Sodium 142.0 Potassium Chloride 111.0 H Carbon Dioxide Anion Gap BUN Creatinine Est GFR ( Amer) Est GFR (Non-Af Amer) Random Glucose Calcium Phosphorus Magnesium Total Bilirubin AST ALT Alkaline Phosphatase Ammonia Total Protein Albumin Globulin Albumin/Globulin Ratio Beta HCG, Quant < 2.39 Arterial Blood Potassium 3.0 L Venous Blood Potassium Urine Color Urine Appearance Urine pH Ur Specific [place] Urine Protein Urine Glucose (UA) Urine Ketones Urine Blood Urine Nitrate Urine Bilirubin Urine Urobilinogen Ur Leukocyte Esterase Urine RBC Urine WBC Ur Epithelial Cells Urine Bacteria Salicylates Urine Opiates Screen Urine Methadone Screen Acetaminophen Ur Barbiturates Screen Ur Phencyclidine Scrn Ur Amphetamines Screen U Benzodiazepines Scrn U Oth Cocaine Metabols U Cannabinoids Screen Alcohol, Quantitative < 10 03/04/18 03/04/18 03/04/18 00:04 00:04 01:32 WBC RBC Hgb Hct MCV MCH MCHC RDW Plt Count MPV Gran % Lymph % (Auto) [place] % (Auto) Eos % (Auto) Baso % (Auto) Gran # Lymph # (Auto) [place] # (Auto) Eos # (Auto) Baso # (Auto) PT INR APTT pCO2 pO2 HCO3 ABG pH ABG Total CO2 ABG O2 Saturation ABG Base Excess ABG Potassium VBG pH VBG pCO2 VBG HCO3 VBG Total CO2 VBG O2 Sat (Calc) VBG Base Excess VBG Potassium Glucose Lactate FiO2 Sodium Potassium Chloride Carbon Dioxide Anion Gap BUN Creatinine Est GFR ( Amer) Est GFR (Non-Af Amer) Random Glucose Calcium Phosphorus Magnesium Total Bilirubin AST ALT Alkaline Phosphatase Ammonia < 9 L Total Protein Albumin Globulin Albumin/Globulin Ratio Beta HCG, Quant Arterial Blood Potassium Venous Blood Potassium Urine Color Yellow Urine Appearance Clear Urine pH 6.5 Ur Specific [place] 1.020 Urine Protein Negative Urine Glucose (UA) Negative Urine Ketones Negative Urine Blood Negative Urine Nitrate Negative Urine Bilirubin Negative Urine Urobilinogen 0.2 Ur Leukocyte Esterase Small H Urine RBC 0 - 2 Urine WBC 1 - 3 Ur Epithelial Cells 1 - 3 Urine Bacteria Few Salicylates Urine Opiates Screen Negative Urine Methadone Screen Negative Acetaminophen Ur Barbiturates Screen Negative Ur Phencyclidine Scrn Negative Ur Amphetamines Screen Negative U Benzodiazepines Scrn Negative U Oth Cocaine Metabols Negative U Cannabinoids Screen Positive H Alcohol, Quantitative 03/04/18 03/04/18 03/04/18 01:32 04:08 04:08 WBC RBC Hgb Hct MCV MCH MCHC RDW Plt Count MPV Gran % Lymph % (Auto) [place] % (Auto) Eos % (Auto) Baso % (Auto) Gran # Lymph # (Auto) [place] # (Auto) Eos # (Auto) Baso # (Auto) PT 11.3 INR 0.98 APTT 28.1 pCO2 pO2 HCO3 ABG pH ABG Total CO2 ABG O2 Saturation ABG Base Excess ABG Potassium VBG pH VBG pCO2 VBG HCO3 VBG Total CO2 VBG O2 Sat (Calc) VBG Base Excess VBG Potassium Glucose Lactate FiO2 Sodium 140 Potassium 3.5 L Chloride 108 H Carbon Dioxide 20 L Anion Gap 15 BUN 7 Creatinine 0.5 L Est GFR ( Amer) > 60 Est GFR (Non-Af Amer) > 60 Random Glucose 192 H Calcium 8.3 L Phosphorus Magnesium Total Bilirubin 0.2 AST 26 ALT 44 Alkaline Phosphatase 27 L D Ammonia Total Protein 7.3 Albumin 4.1 Globulin 3.2 Albumin/Globulin Ratio 1.3 Beta HCG, Quant Arterial Blood Potassium Venous Blood Potassium Urine Color Urine Appearance Urine pH Ur Specific [place] Urine Protein Urine Glucose (UA) Urine Ketones Urine Blood Urine Nitrate Urine Bilirubin Urine Urobilinogen Ur Leukocyte Esterase Urine RBC Urine WBC Ur Epithelial Cells Urine Bacteria Salicylates Urine Opiates Screen Urine Methadone Screen Acetaminophen 178.0 H* Ur Barbiturates Screen Ur Phencyclidine Scrn Ur Amphetamines Screen U Benzodiazepines Scrn U Oth Cocaine Metabols U Cannabinoids Screen Alcohol, Quantitative 03/04/18 03/04/18 03/04/18 04:08 08:00 08:00 WBC RBC Hgb Hct MCV MCH MCHC RDW Plt Count MPV Gran % Lymph % (Auto) [place] % (Auto) Eos % (Auto) Baso % (Auto) Gran # Lymph # (Auto) [place] # (Auto) Eos # (Auto) Baso # (Auto) PT INR APTT 29.3 pCO2 pO2 50 HCO3 ABG pH ABG Total CO2 ABG O2 Saturation ABG Base Excess ABG Potassium VBG pH 7.35 VBG pCO2 35.0 L VBG HCO3 19.3 L VBG Total CO2 20.4 L VBG O2 Sat (Calc) 89.4 H VBG Base Excess -5.6 L VBG Potassium 3.4 L Glucose 209 H Lactate 2.1 FiO2 21.0 Sodium 142.0 139 Potassium 3.5 L Chloride 101.0 108 H Carbon Dioxide 21 Anion Gap 14 BUN 6 L Creatinine 0.5 L Est GFR ( Amer) > 60 Est GFR (Non-Af Amer) > 60 Random Glucose 137 H Calcium 8.4 Phosphorus 3.4 Magnesium 1.7 Total Bilirubin 0.3 AST 25 ALT 42 Alkaline Phosphatase 38 D Ammonia Total Protein 7.0 Albumin 4.0 Globulin 3.0 Albumin/Globulin Ratio 1.3 Beta HCG, Quant Arterial Blood Potassium Venous Blood Potassium 3.4 L Urine Color Urine Appearance Urine pH Ur Specific [place] Urine Protein Urine Glucose (UA) Urine Ketones Urine Blood Urine Nitrate Urine Bilirubin Urine Urobilinogen Ur Leukocyte Esterase Urine RBC Urine WBC Ur Epithelial Cells Urine Bacteria Salicylates Urine Opiates Screen Urine Methadone Screen Acetaminophen Ur Barbiturates Screen Ur Phencyclidine Scrn Ur Amphetamines Screen U Benzodiazepines Scrn U Oth Cocaine Metabols U Cannabinoids Screen Alcohol, Quantitative 03/04/18 03/04/18 03/04/18 08:00 08:00 10:49 WBC 13.1 H D RBC 4.53 Hgb 11.6 L Hct 37.3 MCV 82.3 MCH 25.6 MCHC 31.1 RDW 15.2 H Plt Count 315 MPV 9.7 Gran % 76.9 H Lymph % (Auto) 19.5 L [place] % (Auto) 3.1 Eos % (Auto) 0.2 L Baso % (Auto) 0.3 Gran # 10.04 H Lymph # (Auto) 2.6 [place] # (Auto) 0.4 Eos # (Auto) 0.0 Baso # (Auto) 0.04 PT 12.4 INR 1.08 APTT pCO2 pO2 HCO3 ABG pH ABG Total CO2 ABG O2 Saturation ABG Base Excess ABG Potassium VBG pH VBG pCO2 VBG HCO3 VBG Total CO2 VBG O2 Sat (Calc) VBG Base Excess VBG Potassium Glucose Lactate FiO2 Sodium Potassium Chloride Carbon Dioxide Anion Gap BUN Creatinine Est GFR ( Amer) Est GFR (Non-Af Amer) Random Glucose Calcium Phosphorus Magnesium Total Bilirubin AST ALT Alkaline Phosphatase Ammonia Total Protein Albumin Globulin Albumin/Globulin Ratio Beta HCG, Quant Arterial Blood Potassium Venous Blood Potassium Urine Color Urine Appearance Urine pH Ur Specific [place] Urine Protein Urine Glucose (UA) Urine Ketones Urine Blood Urine Nitrate Urine Bilirubin Urine Urobilinogen Ur Leukocyte Esterase Urine RBC Urine WBC Ur Epithelial Cells Urine Bacteria Salicylates Urine Opiates Screen Urine Methadone Screen Acetaminophen 25.0 H Ur Barbiturates Screen Ur Phencyclidine Scrn Ur Amphetamines Screen U Benzodiazepines Scrn U Oth Cocaine Metabols U Cannabinoids Screen Alcohol, Quantitative 03/04/18 03/04/18 03/04/18 11:40 12:00 12:00 WBC RBC Hgb Hct MCV MCH MCHC RDW Plt Count MPV Gran % Lymph % (Auto) [place] % (Auto) Eos % (Auto) Baso % (Auto) Gran # Lymph # (Auto) [place] # (Auto) Eos # (Auto) Baso # (Auto) PT 12.9 H INR 1.12 APTT 29.0 pCO2 pO2 57 H HCO3 ABG pH ABG Total CO2 ABG O2 Saturation ABG Base Excess ABG Potassium VBG pH 7.38 VBG pCO2 38.0 L VBG HCO3 22.5 VBG Total CO2 23.7 VBG O2 Sat (Calc) 92.3 H VBG Base Excess -2.3 L VBG Potassium 3.3 L Glucose 116 H Lactate 1.0 FiO2 21.0 Sodium 139.0 139 Potassium 3.5 L Chloride 108.0 H 110 H Carbon Dioxide 22 Anion Gap 11 BUN 4 L Creatinine 0.6 L Est GFR ( Amer) > 60 Est GFR (Non-Af Amer) > 60 Random Glucose 115 H Calcium 8.5 Phosphorus Magnesium Total Bilirubin 0.4 AST 22 ALT 40 Alkaline Phosphatase 43 Ammonia Total Protein 6.9 Albumin 3.7 Globulin 3.1 Albumin/Globulin Ratio 1.2 Beta HCG, Quant Arterial Blood Potassium Venous Blood Potassium 3.3 L Urine Color Urine Appearance Urine pH Ur Specific [place] Urine Protein Urine Glucose (UA) Urine Ketones Urine Blood Urine Nitrate Urine Bilirubin Urine Urobilinogen Ur Leukocyte Esterase Urine RBC Urine WBC Ur Epithelial Cells Urine Bacteria Salicylates Urine Opiates Screen Urine Methadone Screen Acetaminophen Ur Barbiturates Screen Ur Phencyclidine Scrn Ur Amphetamines Screen U Benzodiazepines Scrn U Oth Cocaine Metabols U Cannabinoids Screen Alcohol, Quantitative 03/04/18 12:00 WBC RBC Hgb Hct MCV MCH MCHC RDW Plt Count MPV Gran % Lymph % (Auto) [place] % (Auto) Eos % (Auto) Baso % (Auto) Gran # Lymph # (Auto) [place] # (Auto) Eos # (Auto) Baso # (Auto) PT INR APTT pCO2 pO2 HCO3 ABG pH ABG Total CO2 ABG O2 Saturation ABG Base Excess ABG Potassium VBG pH VBG pCO2 VBG HCO3 VBG Total CO2 VBG O2 Sat (Calc) VBG Base Excess VBG Potassium Glucose Lactate FiO2 Sodium Potassium Chloride Carbon Dioxide Anion Gap BUN Creatinine Est GFR ( Amer) Est GFR (Non-Af Amer) Random Glucose Calcium Phosphorus Magnesium Total Bilirubin AST ALT Alkaline Phosphatase Ammonia Total Protein Albumin Globulin Albumin/Globulin Ratio Beta HCG, Quant Arterial Blood Potassium Venous Blood Potassium Urine Color Urine Appearance Urine pH Ur Specific [place] Urine Protein Urine Glucose (UA) Urine Ketones Urine Blood Urine Nitrate Urine Bilirubin Urine Urobilinogen Ur Leukocyte Esterase Urine RBC Urine WBC Ur Epithelial Cells Urine Bacteria Salicylates Urine Opiates Screen Urine Methadone Screen Acetaminophen < 10.0 L Ur Barbiturates Screen Ur Phencyclidine Scrn Ur Amphetamines Screen U Benzodiazepines Scrn U Oth Cocaine Metabols U Cannabinoids Screen Alcohol, Quantitative Radiology Impressions: Radiology Impressions Chest X-Ray 03/03/18 23:08 IMPRESSION: No acute findings. EKG/Cardiology Studies: Cardiology / EKG Studies 03/03/18 23:08 ELECTROCARDIOGRAM Stat Comment: Reason For Exam: overdose Critical Care Progress Note - Nutrition Nutrition: Nutrition Category Date Time Status Regular Diet [DIET] Diets 03/04/18 Lunch Ordered Addendum Addendum: 03/04/18 14:45 ICU Attending Addendum Patient seen and examined. Case reviewed on round with housestaff. Agree with resident note above with the following additions/exceptions: 22F admitted with intentional tylenol and melatonin OD unclear number of pills initial Tyl level was 167 4hours later was 178 pt treated with NAC considerign transfer to tranplant center however 8am level was 25 and at noon it was <10 unlikely toxicitiy cont to monitor labs ok to transfer out of ICU cont 1:1 care of suicide Rest of care as above Bilal Nation MD Pulmonary Critical Care and Sleep Medicine CC Time: 43 mins
--- NOTE | 2018-03-04 08:27 | RAD ---
Date of service: 03/04/2018 HISTORY: overdose COMPARISON: No prior. FINDINGS: LUNGS: The lungs are well inflated and clear. PLEURA: No pleural effusions or pneumothorax. CARDIOVASCULAR: The heart is normal in size. No aortic atherosclerotic calcification present. OSSEOUS STRUCTURES: Within normal limits for the patient's age. VISUALIZED UPPER ABDOMEN: Normal. OTHER FINDINGS: None. IMPRESSION: No acute findings.
[2018-03-04 08:33] LABS: ALB/GLOB RATIO 1.3 (1.1-1.8); ALT/SGPT 42 U/L (7-56); AST/SGOT 25 U/L (14-36); BLOOD UREA NITROGEN 6 mg/dL (7-21); CALCIUM 8.4 mg/dL (8.4-10.5); GFR NON-AFRICAN AMERICAN > 60
[2018-03-04 08:34] LABS: INR 1.08; PROTHROMBIN TIME 12.4 SECONDS (9.4-12.5)
--- NOTE | 2018-03-04 09:21 | CON ---
DATE: 03/04/2018 I saw Ms. Pulliam this morning. HISTORY OF PRESENT ILLNESS: She is a 22-year-old female, with no significant medical history, admitted apparently after an overdose of melatonin and acetaminophen tablets. Case discussed with nurses. She was extremely upset with nausea, vomiting, and abdominal pain on admission, this has subsided. The patient denies significant GI history including gastritis, hepatitis, gallbladder problems, etc. She drinks alcohol socially. She apparently has not had any episodes like this before. At the current time point at bedside in the ICU, the patient has no GI symptoms. She denied nausea as well as abdominal pain. Also, chest pain and shortness of breath were also denied. There is no hematemesis or rectal bleeding noted. PHYSICAL EXAMINATION VITAL SIGNS: I reviewed this patient's vital signs. HEENT: Not performed. LUNGS: Clear to auscultation. HEART: Regular rhythm. ABDOMEN: Soft. No tenderness elicited. LABORATORY DATA: I reviewed this patient's laboratory data. As of 23:00 last night white count 17,000 with an H and H 13 and 40. Platelet count 404. INR within normal limits. Chemistry indicates random glucose roughly 190, electrolytes significant for mild hypokalemia. AST/ALT ratio 26/24 with alk phos 27. Bilirubin within normal limits. ASSESSMENT AND PLAN: This is a 22-year-old female admitted to the ICU with medication overdose. Note that her last acetaminophen level was 178 as of 1:30 this morning. The initial value at 2300, last night was 167. Note that Poison Control was consulted on this patient. She is currently in the process of receiving acetylcysteine doses. She is on pantoprazole daily, and ondansetron every 6 hours. Obviously because of clinical scenarios, the patient requires frequent evaluation of LFTs. Currently, LFTs are noncontributory. Note that the patient was alert, conversive, calm, not combative, no signs of encephalopathy at bedside. She will be followed by the Critical Care Unit staff later on this morning. Poison Control recommendations will be followed by the ICU staff. Dylon Dominguez DO, PhD [facility] # [id number]
[2018-03-04 11:50] LABS: BASO # 0.04 K/mm3 (0.0-2.0); BASO % 0.3 % (0.0-3.0); EOS % 0.2 % (1.5-5.0); GRAN # 10.04 (1.4-6.5); GRAN % 76.9 % (50.0-68.0); HEMOGLOBIN 11.6 g/dL (12.0-16.0); LYMPH # 2.6 (1.2-3.4); LYMPH % 19.5 % (22.0-35.0); MEAN CELL VOLUME 82.3 fl (80.0-105.0); MEAN CORPUSCULAR HEMOGLOBIN 25.6 pg (25.0-35.0); MEAN CORPUSCULAR HGB CONC 31.1 g/dl (31.0-37.0); MEAN PLATELET VOLUME 9.7 fl (7.0-11.0); MONO # 0.4 (0.1-0.6); MONO % 3.1 % (1.0-6.0); RBC 4.53 10^6/uL (3.5-6.1); RED CELL DISTRIBUTION WIDTH 15.2 % (11.5-14.5); WHITE BLOOD COUNT 13.1 10^3/uL (4.5-11.0)
[2018-03-04 11:51] LABS: VENOUS BLOOD GAS BASE EXCESS -2.3 mmol/L (0.0-2.0); VENOUS BLOOD GAS PO2 57 mm/Hg (30-55); VENOUS BLOOD PH 7.38 (7.32-7.43)
[2018-03-04 12:03] LABS: INR 1.12; PROTHROMBIN TIME 12.9 SECONDS (9.4-12.5)
[2018-03-04 12:31] LABS: ALB/GLOB RATIO 1.2 (1.1-1.8); ALBUMIN 3.7 g/dL (3.0-4.8); ALT/SGPT 40 U/L (7-56); AST/SGOT 22 U/L (14-36); BLOOD UREA NITROGEN 4 mg/dL (7-21); CALCIUM 8.5 mg/dL (8.4-10.5); GFR NON-AFRICAN AMERICAN > 60
[2018-03-04 16:06] LABS: ALB/GLOB RATIO 1.2 (1.1-1.8); ALBUMIN 3.5 g/dL (3.0-4.8); ALT/SGPT 39 U/L (7-56); AST/SGOT 22 U/L (14-36); BLOOD UREA NITROGEN 4 mg/dL (7-21); CALCIUM 8.5 mg/dL (8.4-10.5); GFR NON-AFRICAN AMERICAN > 60
--- NOTE | 2018-03-04 19:48 | CARD ---
APPROVED REPORT Date of service: 03/03/2018 EKG Measurement Heart [id number] <Conclusion> Sinus tachycardia Otherwise normal ECG
[2018-03-04 20:35] LABS: ALB/GLOB RATIO 1.2 (1.1-1.8); ALBUMIN 3.7 g/dL (3.0-4.8); ALT/SGPT 36 U/L (7-56); AST/SGOT 31 U/L (14-36); BLOOD UREA NITROGEN 3 mg/dL (7-21); CALCIUM 8.7 mg/dL (8.4-10.5); GFR NON-AFRICAN AMERICAN > 60
[2018-03-04 20:44] LABS: INR 1.14; PARTIAL THROMBOPLASTIN TIME 30.4 Seconds (25.1-36.5)
[2018-03-05] MEDS ORDERED: Sodium Chloride 0.9% 1,000 ML IV STA (05:25)
[2018-03-05] MEDS: Sodium Chloride 0.9% 1,000 ML IV SCH (06:57)
--- NOTE | 2018-03-05 07:36 | PN ---
DATE: 03/05/2018 SUBJECTIVE: I saw Ms. Pulliam this morning. She is a 22-year-old female with no significant medical history, admitted after an overdose of Tylenol tablets yesterday. At the bedside this morning, the patient indicates no nausea or vomiting. She slept well, apparently had a meal last evening with no problems. The patient denies hematemesis, rectal bleeding, or shortness of breath. The patient is calm, conversive, awake, and oriented. PHYSICAL EXAMINATION: VITAL SIGNS: I reviewed this patient's vital signs. HEENT: Noncontributory. LUNGS: Clear to auscultation. HEART: Regular rhythm. ABDOMEN: Soft. No tenderness elicited. LABORATORY DATA: I reviewed this patient's laboratory data with H and H of 11 and 37, normal INR. Chemistry, noncontributory except for mild hypokalemia. LFTs within normal limits, including alk phos, transaminases, and bilirubin. The acetaminophen levels had progressively gone down, initial level yesterday at 01:30 in the morning 178, last one as of last night less than 10. ASSESSMENT AND PLAN: This is a 22-year-old female admitted with a Tylenol overdose. The patient was ordered acetylcysteine multiple doses yesterday as per Poison Control. Apparently, she has done very well. She is currently on pantoprazole daily. The patient was on ondansetron and intravenous fluids. Since her liver function tests are within normal limits and multiple levels of acetaminophen had been undetectable, I think the patient is out of the danger zone at the current time point. Note that, she will be followed up by house staff later on this morning. The disposition of the patient will be as per the house staff. Not much to offer at this particular time point. I will sign off the case. If needed, please do not hesitate to call. Dylon Dominguez DO, PhD [facility]
[2018-03-05 08:23] LABS: MEAN CELL VOLUME 81.9 fl (80.0-105.0); MEAN CORPUSCULAR HEMOGLOBIN 25.5 pg (25.0-35.0); MEAN CORPUSCULAR HGB CONC 31.1 g/dl (31.0-37.0); RBC 4.32 10^6/uL (3.5-6.1); RED CELL DISTRIBUTION WIDTH 15.4 % (11.5-14.5); WHITE BLOOD COUNT 10.1 10^3/uL (4.5-11.0)
[2018-03-05 08:37] LABS: ALB/GLOB RATIO 1.3 (1.1-1.8); ALBUMIN 3.8 g/dL (3.0-4.8); ALT/SGPT 41 U/L (7-56); AST/SGOT 36 U/L (14-36); BLOOD UREA NITROGEN 4 mg/dL (7-21); CALCIUM 8.9 mg/dL (8.4-10.5); GFR NON-AFRICAN AMERICAN > 60
[2018-03-05 08:39] VITALS: RESP 18
[2018-03-05 15:00] VITALS: BP 100/61; PULSE 78; TEMP 98.4; O2SAT 100
--- NOTE | 2018-03-05 16:37 | CP.PCM.DIS ---
Provider - Provider Date of Admission: 03/04/18 01:00 Attending physician: Js Dao MD Primary care physician: TIFFANY PRIMARY CARE PROVIDER Consults: 03/04/18 00:53 Gastroenterology Consult Stat Comment: Consulting Provider: Dylon Dominguez Consulting Physician: Dylon Dominguez Reason for Consult: Acetaminophen Tox/OD 03/05/18 13:53 Physician Consult Routine Comment: Consulting Provider: Mikki Reyes Consulting Physician: Mikki Reyes Reason for Consult: suicide attempt Time Spent in preparation of Discharge (in minutes): 35 Diagnosis - Discharge Diagnosis (1) Overdose Status: Acute Priority: High (2) Suicide attempt Status: Acute Priority: High Hospital Course - Lab Results Lab Results: Micro Results 03/04/18 02:40 Nose MRSA Culture (Admit) - Final MRSA NOT DETECTED 03/04/18 00:04 Urine,Clean Catch Urine Culture - Final No Growth (<1,000 CFU/ML) Most Recent Lab Values WBC 10.1 10^3/uL (4.5-11.0) D 03/05/18 08:00 RBC 4.32 10^6/uL (3.5-6.1) 03/05/18 08:00 Hgb 11.0 g/dL (12.0-16.0) L 03/05/18 08:00 Hct 35.4 % (36.0-48.0) L 03/05/18 08:00 MCV 81.9 fl (80.0-105.0) 03/05/18 08:00 MCH 25.5 pg (25.0-35.0) 03/05/18 08:00 MCHC 31.1 g/dl (31.0-37.0) 03/05/18 08:00 RDW 15.4 % (11.5-14.5) H 03/05/18 08:00 Plt Count 274 10^3/uL (120.0-450.0) 03/05/18 08:00 MPV 9.0 fl (7.0-11.0) 03/05/18 08:00 Gran % 76.9 % (50.0-68.0) H 03/04/18 10:49 Lymph % (Auto) 19.5 % (22.0-35.0) L 03/04/18 10:49 [place] % (Auto) 3.1 % (1.0-6.0) 03/04/18 10:49 Eos % (Auto) 0.2 % (1.5-5.0) L 03/04/18 10:49 Baso % (Auto) 0.3 % (0.0-3.0) 03/04/18 10:49 Gran # 10.04 (1.4-6.5) H 03/04/18 10:49 Lymph # (Auto) 2.6 (1.2-3.4) 03/04/18 10:49 [place] # (Auto) 0.4 (0.1-0.6) 03/04/18 10:49 Eos # (Auto) 0.0 (0.0-0.7) 03/04/18 10:49 Baso # (Auto) 0.04 K/mm3 (0.0-2.0) 03/04/18 10:49 PT 13.0 SECONDS (9.4-12.5) H 03/04/18 20:10 INR 1.14 03/04/18 20:10 APTT 30.4 Seconds (25.1-36.5) 03/04/18 20:10 pCO2 34 mm/Hg (35-45) L 03/03/18 23:38 pO2 57 mm/Hg (30-55) H 03/04/18 11:40 HCO3 19.7 mmol/L (21-28) L 03/03/18 23:38 ABG pH 7.37 (7.35-7.45) 03/03/18 23:38 ABG Total CO2 20.7 mmol.L (22-28) L 03/03/18 23:38 ABG O2 Saturation 96.1 % (95-98) 03/03/18 23:38 ABG Base Excess -4.8 mmol/L (-2.0-3.0) L 03/03/18 23:38 ABG Potassium 3.0 mmol/L (3.6-5.2) L 03/03/18 23:38 VBG pH 7.38 (7.32-7.43) 03/04/18 11:40 VBG pCO2 38.0 (40-60) L 03/04/18 11:40 VBG HCO3 22.5 mmol/l (21-28) 03/04/18 11:40 VBG Total CO2 23.7 mmol.L (22-28) 03/04/18 11:40 VBG O2 Sat (Calc) 92.3 % (40-65) H 03/04/18 11:40 VBG Base Excess -2.3 mmol/L (0.0-2.0) L 03/04/18 11:40 VBG Potassium 3.3 mmol/L (3.6-5.2) L 03/04/18 11:40 Sodium 139.0 mmol/L (132-148) 03/04/18 11:40 Chloride 108.0 mmol/L (98-107) H 03/04/18 11:40 Glucose 116 mg/dl (65-105) H 03/04/18 11:40 Lactate 1.0 mmol/L (0.7-2.1) 03/04/18 11:40 FiO2 21.0 % 03/04/18 11:40 Sodium 140 mmol/L (132-148) 03/05/18 08:00 Potassium 4.0 mmol/L (3.6-5.0) 03/05/18 08:00 Chloride 112 mmol/L (98-107) H 03/05/18 08:00 Carbon Dioxide 23 mmol/L (21-33) 03/05/18 08:00 Anion Gap 9 (10-20) L 03/05/18 08:00 BUN 4 mg/dL (7-21) L 03/05/18 08:00 Creatinine 0.6 mg/dl (0.7-1.2) L 03/05/18 08:00 Est GFR ( Amer) > 60 03/05/18 08:00 Est GFR (Non-Af Amer) > 60 03/05/18 08:00 Random Glucose 93 mg/dL (70-110) 03/05/18 08:00 Calcium 8.9 mg/dL (8.4-10.5) 03/05/18 08:00 Phosphorus 3.4 mg/dL (2.5-4.5) 03/04/18 08:00 Magnesium 1.7 mg/dL (1.7-2.2) 03/04/18 08:00 Total Bilirubin 0.4 mg/dL (0.2-1.3) 03/05/18 08:00 AST 36 U/L (14-36) 03/05/18 08:00 ALT 41 U/L (7-56) 03/05/18 08:00 Alkaline Phosphatase 48 U/L (38-126) 03/05/18 08:00 Ammonia < 9 umol/L (9-33) L 03/04/18 01:32 Total Protein 6.6 g/dL (5.8-8.3) 03/05/18 08:00 Albumin 3.8 g/dL (3.0-4.8) 03/05/18 08:00 Globulin 2.9 gm/dL 03/05/18 08:00 Albumin/Globulin Ratio 1.3 (1.1-1.8) 03/05/18 08:00 Beta HCG, Quant < 2.39 mIU/mL (0-6.15) 03/03/18 23:05 Arterial Blood Potassium 3.0 mmol/L (3.6-5.2) L 03/03/18 23:38 Venous Blood Potassium 3.3 mmol/L (3.6-5.2) L 03/04/18 11:40 Urine Color Yellow (YELLOW) 03/04/18 00:04 Urine Appearance Clear (CLEAR) 03/04/18 00:04 Urine pH 6.5 (4.7-8.0) 03/04/18 00:04 Ur Specific [place] 1.020 (1.005-1.035) 03/04/18 00:04 Urine Protein Negative mg/dL (<30 mg/dL) 03/04/18 00:04 Urine Glucose (UA) Negative mg/dL (NEGATIVE) 03/04/18 00:04 Urine Ketones Negative mg/dL (NEGATIVE) 03/04/18 00:04 Urine Blood Negative (NEGATIVE) 03/04/18 00:04 Urine Nitrate Negative (NEGATIVE) 03/04/18 00:04 Urine Bilirubin Negative (NEGATIVE) 03/04/18 00:04 Urine Urobilinogen 0.2 E.U./dL (<1 E.U./dL) 03/04/18 00:04 Ur Leukocyte Esterase Small [place]/uL (NEGATIVE) H 03/04/18 00:04 Urine RBC 0 - 2 /hpf (0-2) 03/04/18 00:04 Urine WBC 1 - 3 /hpf (0-6) 03/04/18 00:04 Ur Epithelial Cells 1 - 3 /hpf (0-5) 03/04/18 00:04 Urine Bacteria Few /hpf (NONE) 03/04/18 00:04 Salicylates 1 mg/dL (2.0-20.0) L 03/03/18 23:05 Urine Opiates Screen Negative (NEGATIVE) 03/04/18 00:04 Urine Methadone Screen Negative (NEGATIVE) 03/04/18 00:04 Acetaminophen < 10.0 ug/ml (10.0-20.0) L 03/04/18 20:10 Ur Barbiturates Screen Negative (NEGATIVE) 03/04/18 00:04 Ur Phencyclidine Scrn Negative (NEGATIVE) 03/04/18 00:04 Ur Amphetamines Screen Negative (NEGATIVE) 03/04/18 00:04 U Benzodiazepines Scrn Negative (NEGATIVE) 03/04/18 00:04 U Oth Cocaine Metabols Negative (NEGATIVE) 03/04/18 00:04 U Cannabinoids Screen Positive (NEGATIVE) H 03/04/18 00:04 Alcohol, Quantitative < 10 mg/dL (0-10) 03/03/18 23:05 - Hospital Course Hospital Course: Upon Arrival Pt is a 22 yo female with no significant PMH presented to [facility] on 03/04 for tylenol-overdose. Pt stated that she had taken a partially full bottle of tylenol and a partially full bottle of melatonin at around 10PM. Pt had vomited pink frothy content however pt family denies seeing any fragments of pills within the vomit. Pt and boyfriend had an argument yesterday which might have been the inciting factor. Pt states that she has been depressed and wanted to kill herself. She is regretful of her decisions, denies any urges to harm others, denies auditory/visual hallucinations, and changes in sleep and appetite. Hospitalization Pt was admitted to the ICU and treated with NAC for 3 phases. GI was consulted. Psyc was consulted and discussed with the pt about the suicide attempt. Pt stated this was the only time she has ever attempted suicide and that she no longer wants to . She stated that she had a lapse in judgment and regrets her decision. Discharge Please follow up with primary care physician within 1 week of being discharged. Please follow up with a psychiatrist Dr Fuller, in the [facility], within 1 week of being discharged. If you have feelings of wanting to harm yourself or those around you, please go the nearest emergency room. Psychiatry was consulted, and cleared pt for discharge. - Date & Time of H&P Date of H&P: 03/05/18 Time of H&P: 07:00 Discharge Exam - Head Exam Head Exam: ATRAUMATIC, NORMAL INSPECTION, NORMOCEPHALIC - Eye Exam Eye Exam: EOMI - ENT Exam ENT Exam: Mucous Membranes Moist - Respiratory Exam Respiratory Exam: NORMAL BREATHING PATTERN. absent: Accessory Muscle Use, Respiratory Distress - Cardiovascular Exam Cardiovascular Exam: RRR, +S1, +S2. absent: Diastolic murmur, Systolic Murmur - GI/Abdominal Exam GI & Abdominal Exam: Normal Bowel Sounds, Soft. absent: Tenderness - Extremities Exam Extremities exam: pedal pulses present - Neurological Exam Neurological exam: Alert, Oriented x3 - Psychiatric Exam Psychiatric exam: Normal Affect, Normal Mood - Skin Skin Exam: Dry, Intact, Warm Discharge Plan - Follow Up Plan Condition: GUARDED Disposition: HOME/ ROUTINE Instructions: Depression, Acetaminophen Poisoning, Marijuana Use and Addiction, Quitting Smoking, Suicide Prevention, Flu Vaccine Additional Instructions: 1. please follow up with your primary care physician within 1 week of being discharged 2. please follow up with a psychiatrist Dr Fuller, in the [facility], within 1 week of being discharged 3. if you have feelings of wanting to harm yourself or those around you, please go the nearest emergency room Referrals: PCP,NO [Primary Care Provider] -
--- NOTE | 2018-03-06 02:45 | CON ---
DATE: 03/05/2018 In short, the patient is a 22-year-old female with not known previous psychiatric history. The patient was brought in by her boyfriend status post overdose on handful tablets, approximately 10 tablets of Tylenol. As per emergency room documentation, the patient also took melatonin as well as took tequila. The patient was admitted on the medical site. Psych consult was called for evaluation of possible suicidal attempt and possible depression. The patient was seen and examined, discussed with the medical team as well as nursing staff as well as the patient's boyfriend Torres who is next to the patient. The patient presented to be alert and oriented, pleasant and cooperative. The patient reported that the reason why she had tried to overdose on pills is because they had fight. The patient and her boyfriend said that they usually never fight, but that fight was over guilt feelings from her boyfriend. The patient reported that "I had a bad day." The patient reported even after fight, they still talk with the boyfriend, but he made it clear that he does not want to continue relationship with her back then. The patient reported that she went back home from work and she had "bad moment." The patient decided that she wants to . The patient reported that she went to the kitchen, grabbed a Tylenol bottle. Reported that she took two handful of Tylenol. She swallowed that with water. The patient reported that she went back to her room. Before overdosing on medication, the patient wrote goodbye letter to her boyfriend, but boyfriend did not know what this letter was about. The patient reported that then she was feeling very down and depressed, but not now. Afterward, the patient realized what she had done and contacted her boyfriend letting him know that she overdosed on medication. The patient's boyfriend immediately rushed the patient to the hospital. The patient said that at the moment when she took medication, she realized how stupid it was and very regretful about her act. The patient reported that for the past two weeks, she was not feeling depressed. The patient denied any thought of harming herself for the past week. The patient denied feeling anxious. The patient reported that she had good appetite and sleep, but she was distraught with the fight with the boyfriend, which was once for the past two years of relationship. The patient seems to be sincerely remorseful about her act and wants to be discharged from the hospital. Collateral was obtained from the patient's boyfriend Torres Alicea who is next to the patient, and the patient preferred to be interviewed in front of him, phone number is [phone]. As per Torres, the patient does not have similar episodes in the past and the patient's boyfriend seemed to be remorseful for being rude to her. The patient's boyfriend seems to be sincerely caring for the patient. The patient's boyfriend Torres said the patient was not depressed and this act was "shock for me." The patient never verbalized any thought of harming herself ever. The patient does not have history of mental illness. The patient does not have any similar episodes in the past. reviewed vital signs. Temperature 98.4, pulse is 78, blood pressure 100/61, respirations 18, oxygen saturation 100%. MEDICATIONS: Reviewed. The patient is on Zofran, Protonix, and sodium chloride. LABORATORIES: Reviewed. The patient had leukocytosis at the time of admission, but today white blood cell seems to be within normal limits. Hemoglobin and hematocrit 11 and 35.4. Coagulations reviewed. Blood gas reviewed. Chemistry reviewed. Urinalysis reviewed. Leukocyte esterase was small. Toxicology reviewed. Acetaminophen level was 178. Cannabis was positive. PAST PSYCHIATRIC HISTORY: The patient denied any past psychiatric history. The patient denied history of suicidal attempts. The patient denied history of being admitted to the psychiatric inpatient unit. The patient denied history of being on any psychotropic medications. MENTAL STATUS EXAMINATION: The patient presented to be alert and oriented, pleasant, socially appropriate, fair eye contact. Mood described as feeling perfectly normal. Affect was reactive and mood congruent. Thought process seems to be coherent and goal directed. Thought content, the patient denied visual, auditory, tactile hallucinations. Denied paranoid ideation. The patient adamantly denied thoughts of harming herself or others at this point. The patient seems to be remorseful for her impulsive act. The patient's insight and judgment seems to be fair. Impulses are well controlled. IMPRESSION: Adjustment disorder, not otherwise specified, rule out mood spectrum disorder, status post overdose on Tylenol, status post impulsive overdose on Tylenol. PLAN: This fiction and nonfiction writer prose offered the patient admission to the psychiatric inpatient unit for further evaluation and observation, but the patient declined that offer. The patient has future-oriented plans. The patient wants to go back home, take a shower, brush her teeth, also to go back to work. The patient adamantly denied thoughts of harming herself or others. Denied intent or plan. The patient said that she would never do that again, and the patient wants to have followup appointment with outpatient providers. This fiction and nonfiction writer prose provided the patient with information about outpatient clinics including [facility], [facility], [facility], [facility], tele-psychiatrist as well as Dr. Jom[facility] Ort[facility] [place] [facility]. The patient wants to go back home, and at present moment, the patient does not meet the criteria for involuntary commitment at this point. The patient's boyfriend feeling comfortable to accept the patient back home. The patient said if she will have thoughts of harming herself, she would try to contact her family or boyfriend or she will bring herself back to the hospital or call 911. At this point, the patient posed no imminent danger to self or others. I discussed with the nursing staff. As per nursing staff, the patient is having good appetite and sleep. No aggression, no agitation. The patient was remorseful about her act, appreciative, very pleasant. At this point, the patient will be cleared from psychiatric standpoint. This fiction and nonfiction writer prose will sign off. Should you have any questions, give me a call back. Thank you very much for letting me participate in the care of your patient Mikki Reyes MD
== END 2018-03-05 18:15 | disposition home or self-care (01) | DRG 918 ==
LOC: ED 22:57 → OBSVTOIN 03-04 00:33 → ERH 03-04 00:33 → INTOOBSV 03-04 00:33 → OBSVTOIN 03-04 01:00 → ERH 03-04 02:14 → CCU 03-04 02:30 → 5RSO 03-04 22:22
PROVIDERS: ADMIT Internal Medicine; ATTEND Hospitalist
DX: T39.1X2A Poisoning by 4-Aminophenol derivatives, intentional self-harm, initial encounter (principal); F32.9 Major depressive disorder, single episode, unspecified; F43.20 Adjustment disorder, unspecified; E87.6 Hypokalemia; D72.829 Elevated white blood cell count, unspecified